=== PATIENT | male | born 1955 | race Caucasian/White ===

== ENCOUNTER 2017-09-25 10:54 | Inpatient (IN) | payer OTHER ==
--- NOTE | 2017-09-25 11:31 | EDPHY ---
H & P Time Seen by Provider: 09/25/17 11:28 HPI/ROS: CHIEF COMPLAINT: Fever and skin rash HISTORY OF PRESENT ILLNESS: Sent from primary care doctor Janey. Took tylenol at 900. Patient 1st developed fever and chills and a backache when he was in [place] visiting his parents on Wednesday night of this week. The next morning on Wednesday he awakened with a red rash in his left groin. He was seen at urgent care on in [place] and then presents to the primary care office today. He was referred here for concerns about infection. The redness is on both sides. It is uncomfortable. Associated with continued chills, but no blisters. Symptoms moderate to severe. REVIEW OF SYSTEMS: Eye: no change in vision ENT: no sore throat Cardiac: no chest pain or syncope Pulmonary: no cough or SOB Abdomen: no vomiting, diarrhea, abdominal pain Musculoskeletal: no back pain Skin: HPI Neuro: no headache Constitutional: HPI : no urinary symptoms A comprehensive 10 point review of systems is otherwise negative aside from elements mentioned in the history of present illness. PAST MEDICAL HISTORY: Includes coronary disease with stenting, pancreatitis, cholecystectomy, hypertension, hyperlipidemia. CML. Social history: nonsmoker General Appearance: Alert and conversant, cooperative. Eyes: No scleral icterus. ENT, Mouth: Normal mucous membranes. Respiratory: Normal respiratory effort, breath sounds equal, lungs are clear to auscultation. Cardiovascular: Regular rate and rhythm. Gastrointestinal: Abdomen is soft and non tender. Neurological: Alert, face symmetric, normal motor and sensory in extremities. Skin: Erythematous area on the right lateral lower abdomen just above his iliac crest. He has erythema and induration is suprapubic area as well as both sides of his groin. His scrotum is swollen and red and warm to the touch but not particularly tender. No blisters or eschar no crepitus anywhere. No fluctuance. Musculoskeletal: No peripheral edema. Psychiatric: Not agitated. Emergency Department course/MDM: I think it is most likely the patient has cellulitis. Also considered are abscess, fasciitis, fungal, contact dermatitis. Broad-spectrum antibiotics, consultation with Infectious Disease and [facility] and urology. Hospitalist admission. Patient says he had a penicillin allergy as a kid but has been taken cephalosporin since without trouble. 1220: [place] for [place], [place] for ID; he recommends vanco and meropenem. Constitutional: Initial Vital Signs Temperature (C) 37.3 C 09/25/17 11:03 Heart Rate 79 09/25/17 11:03 Respiratory Rate 18 09/25/17 11:03 Blood Pressure 148/85 H 09/25/17 11:03 O2 Sat (%) 98 09/25/17 11:03 O2 Delivery Mode Room Air Allergies/Adverse Reactions: Penicillins Allergy (Unknown, Verified 04/01/09 09:35) Unknown Home Medications: Medication Instructions Recorded Aspirin 81mg (*) 09/25/17 Levothyroxine 09/25/17 Losartan Potassium 09/25/17 SIMVASTATIN 09/25/17 Sertraline HCl 09/25/17 Medical Decision Making Differential Diagnosis: Differential considered including but not limited to contact dermatitis, cellulitis, fasciitis, abscess, [place] Consult/Admit Bed Type: [place] [id number], [place] [id number], [place] [id number] - Data Points Laboratory Results: Laboratory Results 09/25/17 11:37 09/25/17 11:37 09/25/17 09/25/17 09/25/17 11:37 11:37 11:37 WBC RBC Hgb Hct MCV MCH MCHC RDW Plt Count MPV Neut % (Auto) Lymph % (Auto) Mill[place] % (Auto) Eos % (Auto) Baso % (Auto) Nucleat RBC Rel Count Absolute Neuts (auto) Absolute Lymphs (auto) Absolute Monos (auto) Absolute Eos (auto) Absolute Basos (auto) Absolute Nucleated RBC Immature Gran % Immature Gran # Platelet Estimate PT 13.9 SEC SEC (12.0-15.0) INR 1.05 (0.83-1.16) APTT 32.0 SEC SEC (23.0-38.0) VBG Lactic Acid Sodium 134 mEq/L L mEq/L (135-145) Potassium 3.4 mEq/L mEq/L (3.3-5.0) Chloride 99 mEq/L mEq/L (97-110) Carbon Dioxide 25 mEq/l mEq/l (22-31) Anion Gap 10 mEq/L mEq/L (8-16) BUN 14 mg/dL mg/dL (7-23) Creatinine 0.8 mg/dL mg/dL (0.7-1.3) Estimated GFR > 60 Glucose 102 mg/dL H mg/dL (70-100) Calcium 8.4 mg/dL L mg/dL (8.5-10.4) Total Bilirubin Cancelled 1.5 mg/dL H mg/dL (0.1-1.4) C-Reactive Protein 160.7 mg/L H mg/L (<10.0) Specimen Hemolysis Cancelled 09/25/17 09/25/17 11:37 11:37 WBC 5.05 10^3/uL 10^3/uL (3.80-9.50) RBC 3.31 10^6/uL L 10^6/uL (4.40-6.38) Hgb 11.4 g/dL L g/dL (13.7-17.5) Hct 32.6 % L % (40.0-51.0) MCV 98.5 fL fL (81.5-99.8) MCH 34.4 pg H pg (27.9-34.1) MCHC 35.0 g/dL g/dL (32.4-36.7) RDW 14.6 % % (11.5-15.2) Plt Count 71 10^3/uL L 10^3/uL (150-400) MPV 10.2 fL fL (8.7-11.7) Neut % (Auto) 77.8 % H % (39.3-74.2) Lymph % (Auto) 8.9 % L % (15.0-45.0) Millard % (Auto) 12.7 % % (4.5-13.0) Eos % (Auto) 0.0 % L % (0.6-7.6) Baso % (Auto) 0.2 % L % (0.3-1.7) Nucleat RBC Rel Count 0.0 % % (0.0-0.2) Absolute Neuts (auto) 3.93 10^3/uL 10^3/uL (1.70-6.50) Absolute Lymphs (auto) 0.45 10^3/uL L 10^3/uL (1.00-3.00) Absolute Monos (auto) 0.64 10^3/uL 10^3/uL (0.30-0.80) Absolute Eos (auto) 0.00 10^3/uL L 10^3/uL (0.03-0.40) Absolute Basos (auto) 0.01 10^3/uL L 10^3/uL (0.02-0.10) Absolute Nucleated RBC 0.00 10^3/uL 10^3/uL (0-0.01) Immature Gran % 0.4 % % (0.0-1.1) Immature Gran # 0.02 10^3/uL 10^3/uL (0.00-0.10) Platelet Estimate Not Reported PT INR APTT VBG Lactic Acid 0.8 mmol/L mmol/L (0.7-2.1) Sodium Potassium Chloride Carbon Dioxide Anion Gap BUN Creatinine Estimated GFR Glucose Calcium Total Bilirubin C-Reactive Protein Specimen Hemolysis Medications Given: Potassium Chloride/Sodium Chloride (Ns W/ 20 Kcl/L) 1,000 mls @ 100 mls/hr IV CONT CARLOS ENRIQUE Stop: 03/24/18 12:59 Last Admin: 09/25/17 14:29 Dose: 1,000 mls Ondansetron HCl (Zofran Odt) 4 mg PO Q4HRS PRN PRN Reason: Nausea/Vomiting, Use 1st Stop: 03/24/18 12:50 Last Admin: 09/25/17 13:47 Dose: 4 mg Oxycodone HCl (Oxycodone Ir) 5 - 10 mg PO Q3HRS PRN PRN Reason: Pain, Severe Able to Take PO Stop: 10/05/17 12:50 Last Admin: 09/25/17 13:47 Dose: 5 mg Discontinued Medications Sodium Chloride (Ns) 1,000 mls @ 0 mls/hr IV EDNOW ONE; Wide Open PRN Reason: Protocol Stop: 09/25/17 11:56 Last Admin: 09/25/17 12:27 Dose: 1,000 mls Ertapenem 1 gm/ Sodium (Chloride) 100 mls @ 200 mls/hr IV EDNOW ONE PRN Reason: Protocol Stop: 09/25/17 12:51 Last Admin: 09/25/17 13:38 Dose: Not Given Vancomycin/Sodium Chloride (Vancomycin 1 Gm (Premix)) 250 mls @ 250 mls/hr IV EDNOW ONE PRN Reason: Protocol Stop: 09/25/17 13:21 Last Admin: 09/25/17 12:28 Dose: 250 mls Meropenem 1 gm/ Sodium (Chloride) 120 mls @ 120 mls/hr IV EDNOW ONE PRN Reason: Protocol Stop: 09/25/17 13:28 Last Admin: 09/25/17 14:29 Dose: 120 mls Departure - Departure Disposition: [facility] In[facility] Acute Clinical Impression: Cellulitis of groin Condition: Fair
[2017-09-25] MEDS ORDERED: NS 1,000 ML IV ONE (11:55)
[2017-09-25 12:15] LABS: INR 1.05 (0.83-1.16); PROTIME(PATIENT) 13.9 SEC (12.0-15.0)
[2017-09-25 12:20] LABS: PLATELET COUNT 71 10^3/uL (150-400)
[2017-09-25] MEDS ORDERED: ERTAPENEM 1 GM in NS 100 ML IV ONE (12:22)
[2017-09-25] MEDS ORDERED: VANCOMYCIN HCL/NORMAL SALINE 250 ML IV ONE (12:22)
[2017-09-25] MEDS ORDERED: MEROPENEM 1 GM in NS 100 ML IV ONE (12:29)
[2017-09-25] MEDS ORDERED: ONDANSETRON 4 MG/2 ML VIAL IVP PRN (12:51)
[2017-09-25] MEDS ORDERED: ACETAMINOPHEN 325 MG TAB PO PRN (12:51)
[2017-09-25] MEDS ORDERED: ONDANSETRON DISINTEGRATING 4 MG TAB PO PRN (12:51)
--- NOTE | 2017-09-25 12:53 | PDCONSULT ---
Early Childhood Note: Acute Care Surgical Services Consult Note: dictated #[id number] Patricia Hunter MD, FACS
--- NOTE | 2017-09-25 13:13 | GCON ---
[f rep st] CONSULTATION SURGICAL CONSULT DATE OF CONSULTATION: 09/25/2017 REFERRING PHYSICIAN: Yrn Thomson MD CHIEF COMPLAINT: Lower abdominal cellulitis. HISTORY OF PRESENT ILLNESS: Patient is a 62-year-old male, who was traveling in [place] and 4 days ago noticed some erythema in his left groin. The following day it had spread to the opposite side, and he became concerned and was seen at an urgent care and told that he had some form of skin infection. He presented to the emergency room here this morning with worsening cellulitis, and surgical consult ation was requested to rule out necrotizing fasciitis. PAST MEDICAL HISTORY: Significant for CML. He had a prior right inguinal hernia repair within the l ast [address] Quiroz. CHRONIC MEDICATIONS: Include aspirin, levothyroxine, losartan, sertraline, and simvastatin. ALLERGIES: He has a reported allergy to penicillin, though he was a child when this occurred and has not received penicillin since then. SOCIAL HISTORY: Patient is , accompanied by his . REVIEW OF SYSTEMS: Patient denies any chest pain, shortness of breath, headaches, visual disturbance s. He has had no recent dental work or painful teeth. He has no back pain. Has had no dysuria, dwayne rrhea, melena, hematochezia. There is no history of trauma. FAMILY HISTORY: Noncontributory. PHYSICAL EXAMINATION: VITAL SIGNS: Patient's blood pressure 148/85, heart rate is 79, respiratory r ate is 18, O2 sat is 98% on room air, temperature is 37.3. GENERAL: Patient is a pleasant, heavyset gentleman who is in no acute distress. He reports being hungry and had a light breakfast this morni ng. ABDOMEN: His focused abdominal exam reveals erythema extending to the lower abdominal wall bila terally and into both groins and anterior thighs. GENITALIA: The entire scrotum and penis are eryth ematous and edematous, but the erythema ends at the base of the scrotum and does not extend beyond th e perineal [place]he. Perianal exam appears unremarkable. EXTREMITIES: Pedal pulses are +2 and symmetr ical. Patient has trace pitting edema. There is no palpable adenopathy, fluctuance. There is a wel l-healed right lower inguinal incision. LABORATORY STUDIES: WBC is 5.0, hemoglobin 11.4, hematocrit 32.6, platelets 71,000. Venous lactate 0.8. Sodium 134, potassium 3.4, chloride 99, bicarb 25, BUN 14, creatinine 0.8, calcium 8.4, bilirub in 1.5. C-reactive protein is 160. IMPRESSION: 1. Bilateral lower abdominal, inguinal and scrotal cellulitis. No clinical evidence of necrotizing fasciitis. Patient does not appear septic at this time. 2. History of chronic myeloid leukemia with mild anemia and thrombocytopenia. 3. Hypertension. 4. Previous right inguinal hernia repair with mesh. RECOMMENDATIONS: Patient has been started on appropriate antibiotics. Would recommend ID, Oncology and Medical consultations. If patient shows evidence of sepsis or progression despite antibiotics, w ould consider imaging with MRI and/or CT. /[id number]/MODL
[2017-09-25] MEDS: oxyCODONE IR 5 MG TAB PO PRN ×2 (13:47→18:29)
[2017-09-25] MEDS: NS W/ 20 KCl/L 1,000 ML IV SCH (14:29)
--- NOTE | 2017-09-25 16:48 | PDGENHP ---
History and Physical - Chief Complaint Acute myalgias - History of Present Illness Primary care provider: Dr. Bobo Primary oncologist: Dr. Payam Loera HPI: 62-year-old male presenting with acute myalgias characterized as diffuse muscle aches with associated subjective fever, rash, chills, dizziness. Patient reports that the onset of symptoms were 4 days ago while he was visiting and assisting his 90-year-old parents in [place]. He reports that he experienced extreme fatigue, and slept for approximately 16 hr, which is atypical for him. Upon mobilizing, the patient noted that he had ongoing fatigue, myalgias, dizziness exacerbated with standing and intermittent subjective fevers and chills. At that time, he did not note any particular infectious location. He went to an urgent care in [place], and evaluation revealed a rash located in his inguinal area, which they diagnosed as "jock itch " and recommended topical steroid. The steroid ointment did not alleviate the rash, and the area became increasingly red, firm, warm, tender. Extended from his suprapubic area into his inguinal area and then inferiorly, resulting in bogginess in his scrotum. He did not note any penile discharge or abnormal drainage. He denies any urinary symptoms. He reports that upon arriving back in [place], he has been sleeping with a pillow between his legs to alleviate some of his scrotal discomfort. On the day of presentation, he reports that he is cognitively foggy, and he sought medical attention at his primary care provider office, who referred him to our emergency department. History Information - Allergies/Home Medication List Allergies/Adverse Reactions: Penicillins Allergy (Unknown, Verified 04/01/09 09:35) Unknown Home Medications: Aspirin EC [Aspirin EC 81 mg (*)] 81 mg PO DAILY 09/25/17 [Last Taken 09/25/17 14:00] Dasatinib [Sprycel] 100 mg PO DAILY 09/25/17 [Last Taken 09/25/17 14:00] Levothyroxine [Synthroid 150 mcg (*)] 150 mcg PO DAILY06 09/25/17 [Last Taken 14:00] Losartan Potassium [Cozaar] 25 mg PO DAILY 09/25/17 [Last Taken 09/25/17 14:00] Sertraline HCl [Zoloft 50mg (*)] 50 mg PO DAILY 09/25/17 [Last Taken 09/25/17 14 :00] Simvastatin 20 mg PO HS 09/25/17 [Last Taken 09/24/17] I have personally reviewed and updated: family history, medical history, social history, surgical history - Past Medical History coronary artery disease (With stent in the LAD) Additional medical history: CML currently on desatinib for the past 2-3 years. Hypothyroidism. Hypertension. Hyperlipidemia - Surgical History Additional surgical history: Right inguinal hernia repair, cardiac catheterization in March of 2009, cholecystectomy, no previous urologic surgeries - Family History Additional family history: No family history of nephrolithiasis or prostate cancer - Social History Smoking Status: Never smoked Alcohol Use: Other (Patient regularly drinks half a bottle of wine per night, he reports that he may have experienced mild alcohol withdrawal in the past) Drug Use: None Additional social history: Independent in his ADLs, lives with locally Review of Systems Review of Systems: ROS: 10pt was reviewed & negative except for what was stated in HPI & below Constitutional: Reports: chills, fever, malaise, weakness Genitourinary: Reports: other (Scrotal pain) Muscolosketal: Reports: muscle pain Skin: Reports: rash (Inguinal area) Physical Exam Physical Exam: Temp Pulse Resp BP Pulse Ox 37.9 C 79 12 114/66 90 L 09/25/17 16:16 09/25/17 16:16 09/25/17 16:16 09/25/17 16:16 09/25/17 16:16 Constitutional: no apparent distress, obese, uncomfortable, No not in pain ( Mild in inguinal area) Eyes: PERRL, anicteric sclera, EOMI Ears, Nose, Mouth, Throat: moist mucous membranes, hearing normal, ears appear normal, no oral mucosal ulcers Cardiovascular: regular rate and rhythym, no murmur, rub, or gallop, No edema Respiratory: no respiratory distress, no rales or rhonchi, clear to auscultation Gastrointestinal: normoactive bowel sounds, soft, non-tender abdomen, no palpable masses Genitourinary: other (Scrotal bogginess and fullness with mild tenderness, no penile lesions, no penile drainage, no tenderness over the penis) Skin: rash (Bilateral inguinal area with some ecchymoses, raised red lesions but no induration inferior to the suprapubic area, that said, the suprapubic area is notably Yessenia rated and mildly tender) Neurologic: AAOx3, sensation intact bilaterally, No weakness Psychiatric: interacting appropriately, not anxious, not encephalopathic, thought process linear Lab Data & Imaging Review 09/25/17 11:37 09/25/17 11:37 WBC 5.05 10^3/uL (3.80-9.50) 09/25/17 11:37 RBC 3.31 10^6/uL (4.40-6.38) L 09/25/17 11:37 Hgb 11.4 g/dL (13.7-17.5) L 09/25/17 11:37 Hct 32.6 % (40.0-51.0) L 09/25/17 11:37 MCV 98.5 fL (81.5-99.8) 09/25/17 11:37 MCH 34.4 pg (27.9-34.1) H 09/25/17 11:37 MCHC 35.0 g/dL (32.4-36.7) 09/25/17 11:37 RDW 14.6 % (11.5-15.2) 09/25/17 11:37 Plt Count 71 10^3/uL (150-400) L 09/25/17 11:37 MPV 10.2 fL (8.7-11.7) 09/25/17 11:37 Neut % (Auto) 77.8 % (39.3-74.2) H 09/25/17 11:37 Lymph % (Auto) 8.9 % (15.0-45.0) L 09/25/17 11:37 [place] % (Auto) 12.7 % (4.5-13.0) 09/25/17 11:37 Eos % (Auto) 0.0 % (0.6-7.6) L 09/25/17 11:37 Baso % (Auto) 0.2 % (0.3-1.7) L 09/25/17 11:37 Nucleat RBC Rel Count 0.0 % (0.0-0.2) 09/25/17 11:37 Absolute Neuts (auto) 3.93 10^3/uL (1.70-6.50) 09/25/17 11:37 Absolute Lymphs (auto) 0.45 10^3/uL (1.00-3.00) L 09/25/17 11:37 Absolute Monos (auto) 0.64 10^3/uL (0.30-0.80) 09/25/17 11:37 Absolute Eos (auto) 0.00 10^3/uL (0.03-0.40) L 09/25/17 11:37 Absolute Basos (auto) 0.01 10^3/uL (0.02-0.10) L 09/25/17 11:37 Absolute Nucleated RBC 0.00 10^3/uL (0-0.01) 09/25/17 11:37 Immature Gran % 0.4 % (0.0-1.1) 09/25/17 11:37 Immature Gran # 0.02 10^3/uL (0.00-0.10) 09/25/17 11:37 Platelet Estimate Not Reported 09/25/17 11:37 PT 13.9 SEC (12.0-15.0) 09/25/17 11:37 INR 1.05 (0.83-1.16) 09/25/17 11:37 APTT 32.0 SEC (23.0-38.0) 09/25/17 11:37 VBG Lactic Acid 0.8 mmol/L (0.7-2.1) 09/25/17 11:37 Sodium 134 mEq/L (135-145) L 09/25/17 11:37 Potassium 3.4 mEq/L (3.3-5.0) 09/25/17 11:37 Chloride 99 mEq/L (97-110) 09/25/17 11:37 Carbon Dioxide 25 mEq/l (22-31) 09/25/17 11:37 Anion Gap 10 mEq/L (8-16) 09/25/17 11:37 BUN 14 mg/dL (7-23) 09/25/17 11:37 Creatinine 0.8 mg/dL (0.7-1.3) 09/25/17 11:37 Estimated GFR > 60 09/25/17 11:37 Glucose 102 mg/dL (70-100) H 09/25/17 11:37 Calcium 8.4 mg/dL (8.5-10.4) L 09/25/17 11:37 Total Bilirubin 1.5 mg/dL (0.1-1.4) H 09/25/17 11:37 Lactate Dehydrogenase 551 IU/L (313-618) 09/25/17 14:19 C-Reactive Protein 160.7 mg/L (<10.0) H 09/25/17 11:37 Specimen Hemolysis Cancelled 09/25/17 11:37 Urine Color YELLOW 09/25/17 14:55 Urine Appearance CLEAR 09/25/17 14:55 Urine pH 6.0 (5.0-7.5) 09/25/17 14:55 Ur Specific [place] 1.003 (1.002-1.030) 09/25/17 14:55 Urine Protein NEGATIVE (NEGATIVE) 09/25/17 14:55 Urine Ketones TRACE (NEGATIVE) H 09/25/17 14:55 Urine Blood 1+ (NEGATIVE) H 09/25/17 14:55 Urine Nitrate NEGATIVE (NEGATIVE) 09/25/17 14:55 Urine Bilirubin NEGATIVE (NEGATIVE) 09/25/17 14:55 Urine Urobilinogen 2.0 EU (0.2-1.0) H 09/25/17 14:55 Ur Leukocyte Esterase NEGATIVE (NEGATIVE) 09/25/17 14:55 Urine RBC NONE SEEN /hpf (0-3) 09/25/17 14:55 Urine WBC 0-1 /hpf (0-3) 09/25/17 14:55 Ur Epithelial Cells NONE SEEN /lpf (NONE-1+) 09/25/17 14:55 Urine Glucose NEGATIVE (NEGATIVE) 09/25/17 14:55 Assessment & Plan Assessment: 62-year-old male presents with acute lower abdominal wall cellulitis Plan: 1. Cellulitis. Present on admission. Acute, new problem this provider, further workup indicated. Located in the suprapubic area with gravity dependent ecchymoses in the bilateral inguinal area as well as scrotal bogginess most likely secondary to gravity dependent soft tissue swelling from his superior cellulitis -discussed with Dr. Fredo Troncoso, he suggests that the patient most likely experienced some waistline friction and resultant breakage in the skin barrier, should be treated for skin kelli -appreciate surgical consultation -day 1 of IV vancomycin -patient may have impaired immune system activity with underlying CML and will most likely require at least 48 hr of IV antibiotics to accomplish stabilization -blood cultures drawn given his systemic symptoms, monitor for bacteremia -CRP significantly elevated at 160, lactic normal 2. Chronic myelogenous leukemia. Currently stabilized on desatinib, patient may have and blunted immune response explaining why his white blood cell count is abnormally normal despite the severity of his cellulitis 3. Coronary artery disease. Chronic, reviewed outside records including [address] Nikko Riley characterizing patient's mid LAD lesion requiring stent placement for unstable angina, preserved ejection fraction 60% at that time -continue patient's home cardiac medications once reconciled 4. Hypertension. Chronic, continue home medication once reconciled Diet. Regular comma IV fluids overnight Prophylaxis. Moderate risk patient, Lovenox 40 Code. Full per patient, is MD POA Disposition. Anticipated discharge uncertain this time, anticipated length stay is greater than 48 hr for reasonable medical necessity including severe acute abdominal wall cellulitis requiring at least 48 hr of IV antibiotic therapy with drug level monitoring, blood culture monitoring, frequent reassessment of clinical symptoms, high risk patient with underlying chronic myelogenous leukemia.
--- NOTE | 2017-09-25 19:19 | PDMN ---
Medical Necessity Medical necessity: Pt meets inpt criteria per MD order and MCG M-70, Cellulitis , A-2 days. Pt presents with extreme fatigue, myalgias, dizziness, diagnosed w / severe acute abd wall cellulitis, IV ABX initiated, blood cultures pending, IVF, comorbid condition of CML (chronic myelongenous leukemia)- may have impaired immune response from this, CAD and HTN, ID and Surg consults pending. Anticipate >2mn for ongoing eval and treatment.
[2017-09-25] MEDS: ATORVASTATIN CALCIUM 10 MG TAB PO SCH (20:45)
--- NOTE | 2017-09-25 20:46 | GCON ---
[f rep st] CONSULTATION DATE OF CONSULTATION: 09/25/2017 CHIEF COMPLAINT: Lower abdominal and scrotal cellulitis with possible new area of erythema in the ri ght flank. Patient does state that the erythema and symptoms of cellulitis are improving despite thi s new left flank area. HISTORY OF PRESENT ILLNESS: 62-year-old male, traveling in [place] 4 days ago, noticed erythema approx imately 12 hours after a bout of fevers and chills. It should be noted that the fevers and chills st arted prior to any notification or symptoms of cellulitis or groin swelling or discomfort. He went t o bed early on Wednesday with fevers and chills. morning he awoke noting the symptoms of ce llulitis with erythema, edema, tenderness to the touch around his lower abdomen and groin. It had sp read on Wednesday and he went to a physician at an urgent care. They told him it might be jock itch. Bev meier came to the emergency room this morning with worsening cellulitis and fevers. PAST MEDICAL HISTORY: Significant for CML; he is on immunotherapy for that. He had a prior right in guinal hernia repair by Dr. Quiroz. CHRONIC MEDICATIONS: Aspirin, levothyroxine, losartan, sertraline, and simvastatin. ALLERGIES: Penicillin. SOCIAL HISTORY: He is . REVIEW OF SYSTEMS: Negative except for abdominal discomfort, groin discomfort. A 10-point review of systems is otherwise negative. FAMILY HISTORY: Noncontributory. PHYSICAL EXAMINATION: VITAL SIGNS: His blood pressures are normal 130s over 80s. Heart rate is 70, respiratory rate is 12, oxygen saturation 98% on room air, afebrile. GENERAL: Resting comfortably. No acute distress. HEENT: Normocephalic, atraumatic. NECK: Supple. No lymphadenopathy. Trache a is midline. CHEST: No retractions or pursed lip breathing. No cyanosis. ABDOMEN: GENITALIA: So ft, nontender, nondistended. The lower abdomen, groin area and scrotum are all erythematous, edem[place] us, and mildly tender to palpation. There is an area of erythema and edema on the right flank the pa tient states is new that is mildly tender to palpation. Perianal exam is unremarkable. EXTREMITIES: Pulses are +2, symmetrical, mild edema bilaterally in the lower extremities. No palpable lymphaden opathy or fluctuance. LAB STUDIES: White count is 5. H and H are normal. Platelet count is 71,000. Lactate is normal. Creatinine is 0.8. ASSESSMENT AND PLAN: 1. Abdominal, inguinal, and scrotal cellulitis, improving on antibiotics-watch this carefully. Will follow along. I strongly recommend Oncology evaluate this patient to see if this is related to his immunotherapy, which can cause rashes in some patients, although since the antibiotics seem to be imp roving this, this may not necessarily be completely related to the immunotherapy. Oncology has been consulted. 2. Continue antibiotics. 3. Will follow. 4. If rash/cellulitis worsens, recommend abdominal CT of the abdomen and pelvis to evaluate for [place] gangrene or necrotizing fasciitis. /[id number]/MODL
[2017-09-25] MEDS ORDERED: CHOLESTYRAMINE/SUCROSE 4 GM PKT PO SCH (21:00)
--- NOTE | 2017-09-25 23:06 | GCON ---
[f rep st] CONSULTATION INPATIENT INFECTIOUS DISEASE CONSULTATION REFERRING PHYSICIAN: Yrn Leslie MD REASON FOR REFERRAL: Suprapubic cellulitis with extension to the right flank. HISTORY OF PRESENT ILLNESS: Patient is a 62-year-old male who has underlying chronic myelogenous kyle kemia on targeted chemotherapy, who was flying to [place] last week and became ill while visiting his parents there. The patient noted initially an inflamed area in the left groin which after the first night there ended up extending over into his right groin. He sought advice from an urgent care clin ic, who gave him steroid cream and told him that he had jock itch. The patient used the cream, but t he inflammation and swelling became worse. He had some subjective fevers and chills as well. He pre sented to the emergency room earlier today with complaints of extending erythema up to the right flan k. He was evaluated and found to have a normal total white blood cell count with a mild shift, neutr ophil sub group. The patient was started empirically on vancomycin and meropenem. He was admitted f or evaluation. We are consulted to determine antibiotic regimen as well as severity and involvement. PAST MEDICAL HISTORY: 1. 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 2. Coronary artery disease. 3. Hypothyroidism. 4. Hypertension. 5. Hyperlipidemia. PAST SURGICAL HISTORY: 1. Status post right inguinal hernia repair many years ago. 2. Status post cardiac catheterization in March of 2009. 3. Status post cholecystectomy. ANTIBIOTICS: 1. Vancomycin. 2. Meropenem. ALLERGIES: Patient has a childhood allergy to penicillin. He does not know his reaction. SOCIAL HISTORY: Patient is . Never a tobacco user. Has multiple glasses of wine per night. No drug use. FAMILY HISTORY: Reviewed but noncontributory. REVIEW OF SYSTEMS: Other than that detailed above in history of present illness, a comprehensive 10- system review is negative. PHYSICAL EXAMINATION: VITAL SIGNS: Temperature maximum 37.3, temperature current 36.9, heart rate 7 6, respiratory rate 14, blood pressure 140/79. GENERAL: The patient is a well-formed, well-nourishe d older male in no acute distress. He is not toxic in appearance. He is alert and oriented x3. He has a pleasant demeanor. HEENT: Normocephalic for age. Atraumatic. No scleral icterus. No oral l esion or drainage from the nares. Eyes, lids, conjunctivae are within normal limits. Pupils are equal and round bilaterally. NECK: S upple. No meningismus. LUNGS: Clear to auscultation bilaterally. Good effort. HEART: Regular ra te and rhythm. No murmur, rub, or gallop noted. ABDOMEN: Soft nontender in the upper quadrants. S uprapubically there is notable edema and dusky, patchy erythema that stretches down to bilateral ingu inal areas. There are no discrete masses or fluctuance, although he is tender in the suprapubic and lower quadrants. There is erythema that stretches up onto the right flank. SKIN: Warm and dry to t he touch. Rash as described above. No other lesions noted. MUSCULOSKELETAL: No other muscle tender ness is noted. No effusion or arthritis is seen. NEURO: Cranial nerves 2-12 seem to be intact. Peripheral sensation seems intact in extremities. LABORATORY DATA: Patient has a CBC dated 09/25/2017 shows a white blood cell count of 5.1, hemoglobi n 11.4, hematocrit of 32.6, and platelet count of 71. Differential shows mild left shift with 78% se gmented neutrophils. Serum chemistries on 09/25 show sodium 134, potassium of 3.4, chloride of 99, b icarbonate 25, BUN of 14, creatinine of 0.8, total bilirubin is elevated at 1.5. C-reactive protein is elevated 160.7. MICROBIOLOGIC DATA: Patient has blood cultures dated 09/25/2017, which are pending. ASSESSMENT: Suprapubic cellulitis with extension in the inguinal areas and up onto the right flank. The patient does have scrotal edema, but I think this is probably dependent and not primary or invol wagner. The patient was started empirically on vancomycin and meropenem. We will continue the meropene m 1 g IV q.8 hours. We will evaluate over time his response to treatment. PLAN: 1. Continue both vancomycin and meropenem. 2. Follow clinical course. /[id number]/MODL
[2017-09-26] MEDS: oxyCODONE IR 5 MG TAB PO PRN ×2 (00:13→12:56)
[2017-09-26] MEDS: VANCOMYCIN 1.5 GM in D5W 250 ML IV SCH ×2 (00:14→11:17)
[2017-09-26] MEDS: NS W/ 20 KCl/L 1,000 ML IV SCH (00:24)
[2017-09-26 04:45] LABS: PLATELET COUNT 59 10^3/uL (150-400)
[2017-09-26] MEDS ORDERED: MEROPENEM 1 GM in NS 100 ML IV SCH (06:00)
[2017-09-26] MEDS: LEVOTHYROXINE 150 MCG TAB PO SCH (06:07)
[2017-09-26] MEDS ORDERED: Dasatinib [Sprycel] 100 MG PO SCH (09:00)
[2017-09-26] MEDS: ASPIRIN EC 81 MG TAB PO SCH (09:01)
[2017-09-26] MEDS: SERTRALINE HCL 50 MG TAB PO SCH (09:01)
[2017-09-26] MEDS: ENOXAPARIN 40 MG/0.4 ML SYR SC SCH (09:01)
--- NOTE | 2017-09-26 09:13 | GCON ---
[f rep st] CONSULTATION INPATIENT HEMATOLOGY CONSULTATION. DATE OF CONSULTATION: 09/26/2017 REFERRING PHYSICIAN: aPyam Burton MD OUTPATIENT ONCOLOGIST: Payam Loera MD REASON FOR CONSULTATION: Perineal cellulitis in a patient with a history of chronic myeloid leukemia . HISTORY OF PRESENT ILLNESS: The patient is a 62-year-old man with a history of chronic myeloid leuke ag. He was diagnosed in August of 2015. He presented with leukocytosis and splenomegaly. Bone marro w biopsy showed chronic myeloid leukemia. His Sokel score was high. He was started on dasatinib at 100 mg per day. At 1 year, his bone marrow showed a cytogenetic remission, though his PCR remained m ildly elevated at 0.5%. That has been falling slowly, and as of last week, the PCR was 0.3%, just sh ort of a major molecular response. He does not have a T315I mutation. His platelet count has been c hronically low on dasatinib around 100 and his white count also slightly low around 2.5 to 3. The patient was traveling and developed a fever and low back pain. The next day, he noticed a rash i n his groin. He continued to feel poorly and so came back from [place] where he was traveling and to the emergency department. He was evaluated by Surgery, Urology, and Infectious Disease. They belie ve he has a cellulitis, though there is no evidence of necrotizing fasciitis. He is currently on kristan openem and vancomycin. His rash is improving. He is feeling better without a fever since admission. His platelet count fell slightly to 59. His white count is 4.28 with an absolute neutrophil count of 2900. PAST MEDICAL HISTORY: 1. Chronic myeloid leukemia as described above. 2. Coronary artery disease, status post stent 20 years ago. CURRENT MEDICATIONS: Include meropenem, Lovenox, vancomycin, sertraline, Lipitor. ALLERGIES: No known drug allergies. FAMILY HISTORY: Noncontributory. SOCIAL HISTORY: Nonsmoker. He drinks wine moderately. He is a retired oil and gas developer. REVIEW OF SYSTEMS: Aside from pertinent positives in the HPI, 14-point review of systems. PHYSICAL EXAMINATION: VITAL SIGNS: Temperature 37.0, blood pressure 110/65, heart rate 69, oxygen s aturation 97% on 1 L. GENERAL: He was in no acute distress. HEENT: Sclerae anicteric. Oropharynx is clear. NECK: Supple without lymphadenopathy. LUNGS: Clear to auscultation bilaterally. CARDI AC: Regular rate and rhythm. No murmurs, gallops, or rubs. ABDOMEN: Normoactive bowel sounds. No ntender, nondistended. : His rash is mostly resolved. There is still some scrotal edema. There is no skin breakdown. EXTREMITIES: No edema. NEUROLOGIC: Alert and oriented x3. LABORATORY DATA: Reviewed in the HPI. IMPRESSION: This is a 62-year-old man presenting with perineal cellulitis. He is on dasatinib for c hronic myelogenous leukemia. He is not neutropenic at baseline and is not neutropenic now. This judson atment is not particularly immunosuppressive. It is unclear if it is directly related to his current infection. RECOMMENDATIONS: 1. We will hold dasatinib until the infection has resolved and his blood counts recover. His diseas e is under good control and so this interruption should not be too much of a problem. 2. Continue antibiotic therapy as you are. 3. The patient should come to see Dr. Loera on discharge 2 to 3 weeks later to check his blood cou nts for discussion of resuming the dasatinib. Thank you for this consultation. We will continue to follow patient with you closely while he is in the hospital. /[id number]/MODL
[2017-09-26] MEDS ORDERED: MAG HYDROX/AL HYDROX/SIMETH 30 ML UDCUP PO PRN (11:27)
--- NOTE | 2017-09-26 11:44 | SOAPPROG ---
SOAP Progress Note Assessment/Plan: Assessment: Cellulitis, improving, lower abdomen and groin Plan: Cont Abx - appreciate Onc input on stopping immunotherapy until this resolves 09/26/17 11:42 Subjective: Doing well - home when hosp service deems appropriate - Objective: Vital Signs Temp Pulse Resp BP Pulse Ox 37.0 C 69 14 110/65 97 09/26/17 08:10 09/26/17 08:10 09/26/17 08:10 09/26/17 08:10 09/26/17 08:10 Laboratory Results 09/26/17 04:10 09/26/17 04:10 09/25/17 09/26/17 09/27/17 05:59 05:59 05:59 Intake Total 2974 Output Total 1450 250 Balance 1524 -250 PT 13.9 SEC (12.0-15.0) 09/25/17 11:37 INR 1.05 (0.83-1.16) 09/25/17 11:37 - Time Spent With Patient Time Spent With Patient: 15 min Physical Exam - Physical Exam EENT: PERRL/EOMI Neck: non-tender Respiratory: chest non-tender Cardiac/Chest: normal peripheral pulses Abdomen: other (erythema/cellulitis is improving, all marked areas w less erythema and edema) ICD10 Worksheet Patient Problems: Problems Problem Status Onset Cellulitis of groin Acute
--- NOTE | 2017-09-26 12:51 | PCMIDPN ---
Assessment/Plan: 1. Abdominal wall/inguinal/scrotal cellulitis in patient with underlying CML: Cellulitis has sharply demarcated margins and looks very consistent with streptococcal etiology. Gram negatives/anaerobes/MRSA seem less likely. Patient is not neutropenic. Will change vancomycin and meropenem to cefazolin 2 g IV q.8 hours and watch him closely. Do not feel that he needs imaging or addition of clindamycin or linezolid to diminish toxin production at this time given clinical stability. Subjective: Patient tells me"I feel much better today."Describes antecedent flu-like symptoms, then development of a bright red patch of erythema over his left groin that spread his abdomen, then to his scrotal area. Denies any bug bites, but feels that perhaps his underwear may have irritated the area. No dysuria. Objective: Vancomycin 1.5 g IV q.12 hours day 1. Meropenem 1 g IV Q 8 hr day 1. T-max 37.9 degrees Vital Signs Temp Pulse Resp BP Pulse Ox 37.2 C 70 19 110/65 90 L 09/26/17 12:08 09/26/17 12:08 09/26/17 12:08 09/26/17 12:08 09/26/17 12:08 Laboratory Results 09/26/17 04:10 09/26/17 04:10 09/25/17 09/26/17 09/27/17 05:59 05:59 05:59 Intake Total 2974 400 Output Total 1450 550 Balance 1524 -150 C-Reactive Protein 160.7 mg/L (<10.0) H 09/25/17 11:37 Blood cultures x2 yesterday no growth - Physical Exam General Appearance: alert, no apparent distress, other (Flushed cheeks) EENT: No scleral icterus, No thrush Respiratory: lungs clear Cardiac/Chest: regular rate, rhythm Abdomen: non-tender, soft Skin: other (Patient has sharply demarcated areas of brick red erythema on his abdomen that are not contiguous. He also has brick red erythema with some around his groin bilaterally, with some purpuric lesions. Scrotum is swollen, but nontender. It is also warm with dusky erythema. There are no bullae. No loss of sensation. The erythema has been marked with a pen. Parts of his abdomen look like they have extended slightly, but overall the redness has improved per the patient.) Neuro/Psych: oriented x 3 ICD10 Worksheet Patient Problems: Problems Problem Status Onset Cellulitis of groin Acute
[2017-09-26] MEDS ORDERED: ceFAZolin 2 GM/DEXTROSE 100 ML IV SCH (13:00)
--- NOTE | 2017-09-26 13:33 | ASMTCMCOM ---
CM Note CM Note Notes: 09/26/2017 Case Management Note Pt admitted for treatment of cellulitis of the groin. Pt is currently on IV antibiotics. Case Management to follow for possible IV antibiotic d/c needs. There are no PT or OT evals ordered at this time. Case Management d/c poc: to be determined. Case Management to follow. Date Signed: 09/26/2017 01:32 PM Electronically Signed By:Virgie Palmer RN
--- NOTE | 2017-09-26 14:08 | HOSPPROG ---
Hospitalist Progress Note Assessment/Plan: Assessment: 62-year-old male presents with acute lower abdominal wall cellulitis Plan: 1. Cellulitis. Present on admission. Acute, improving w/ broad-spectrum Abx, suspect 2/2 abd wall friction at waistline -discussed with Dr. Fraga, she recommends adjustment for likely strep organisms and used IV Ancef for appropriate coverage, monitor additional 24hrs on IV Abx, and reassess for improvement in AM -day 2 Abx, on Ancef 2. Chronic myelogenous leukemia. Currently stabilized on desatinib, d/w Dr. Rabago, he recommends holding Rx until episode above resolved, then restart as outpt, disease process currently well controlled 3. Coronary artery disease. Chronic, LAD stent -continue patient's home cardiac medications once reconciled 4. Hypertension. Chronic, continue home medication once reconciled Diet. Regular Prophylaxis. Moderate risk patient, Lovenox 40 Code. Full per patient, is MD CABRAL Disposition. Anticipated discharge uncertain this time, anticipated length stay is greater than 48 hr for reasonable medical necessity including severe acute abdominal wall cellulitis requiring at least 48 hr of IV antibiotic therapy Subjective: feels like he has more energy, no diarrhea Objective: Vital Signs Temp Pulse Resp BP Pulse Ox 37.3 C 70 19 110/65 96 09/26/17 12:49 09/26/17 12:08 09/26/17 12:08 09/26/17 12:08 09/26/17 12:49 Laboratory Results 09/26/17 04:10 09/26/17 04:10 09/25/17 09/26/17 09/27/17 05:59 05:59 05:59 Intake Total 2974 400 Output Total 1450 550 Balance 1524 -150 PT 13.9 SEC (12.0-15.0) 09/25/17 11:37 INR 1.05 (0.83-1.16) 09/25/17 11:37 - Physical Exam Constitutional: no apparent distress, appears nourished, not in pain, obese Cardiovascular: regular rate and rhythym, no murmur, rub, or gallop, No edema Respiratory: no respiratory distress, no rales or rhonchi, clear to auscultation Gastrointestinal: normoactive bowel sounds, soft, non-tender abdomen, no palpable masses, No guarding, No distension Skin: rash (bilat groin ecchymoses, raised R groin w/ minimal blanchability; suprapubic induration and mild blanchability) Neurologic: AAOx3, sensation intact bilaterally, No facial droop Psychiatric: interacting appropriately, not anxious, not encephalopathic, thought process linear ICD10 Worksheet Patient Problems: Problems Problem Status Onset Cellulitis of groin Acute
[2017-09-26] MEDS: ceFAZolin 2 GM/DEXTROSE 100 ML IV SCH ×2 (14:32→21:34)
[2017-09-26] MEDS: ATORVASTATIN CALCIUM 10 MG TAB PO SCH (21:34)
[2017-09-27] MEDS: LEVOTHYROXINE 150 MCG TAB PO SCH (05:55)
[2017-09-27] MEDS: ceFAZolin 2 GM/DEXTROSE 100 ML IV SCH ×3 (05:56→21:51)
--- NOTE | 2017-09-27 08:24 | SOAPPROG ---
SOAP Progress Note Assessment/Plan: Assessment: - CML diagnosed in 2016 with leukocytosis and splenomegaly. He is currently well controlled on dasatinib which is currently on hold due to infection. - Scrotal cellulitis - no necrosis. Erythema retreating from ink lines. Afebrile. Not neutropenic. ID input appreciated. Duration and route of administration of antibiotics per ID. - CAD Plan: - Check CBC - Continue to hold dasatinib for now - Antibiotics per ID Subjective: Feels better. Thinks he has gotten more URIs in general since starting on dasatinib. Objective: Vital Signs Temp Pulse Resp BP Pulse Ox 36.9 C 92 18 150/84 H 92 09/27/17 08:14 09/27/17 08:14 09/27/17 08:14 09/27/17 08:14 09/27/17 08:14 Laboratory Results 09/26/17 04:10 09/26/17 04:10 09/25/17 09/26/17 09/27/17 23:59 23:59 23:59 Intake Total 1332 3360 Output Total 950 1250 Balance 382 2110 PT 13.9 SEC (12.0-15.0) 09/25/17 11:37 INR 1.05 (0.83-1.16) 09/25/17 11:37 Physical Exam - Physical Exam General Appearance: alert, no apparent distress Respiratory: lungs clear Cardiac/Chest: regular rate, rhythm Abdomen: splenomegaly (8cm below the LCM) Male Genitalia: erythema (scrotum. Scrotum also swollen.) Skin: other (erythema in groin appears to be retreating. No evidence of necrosis.) Neuro/Psych: alert, normal mood/affect, oriented x 3 ICD10 Worksheet Patient Problems: Problems Problem Status Onset Cellulitis of groin Acute
[2017-09-27 09:20] LABS: PLATELET COUNT 89 10^3/uL (150-400)
[2017-09-27] MEDS: ASPIRIN EC 81 MG TAB PO SCH (09:25)
[2017-09-27] MEDS: SERTRALINE HCL 50 MG TAB PO SCH (09:26)
[2017-09-27] MEDS: ENOXAPARIN 40 MG/0.4 ML SYR SC SCH (09:33)
--- NOTE | 2017-09-27 09:43 | SOAPPROG ---
SOAP Progress Note Assessment/Plan: Assessment: Cellulitis of groin Acute is improving and continue ID and Onc care, see me in office if concerns arise. Plan: follow up as needed 09/27/17 09:41 Subjective: doing well Objective: Vital Signs Temp Pulse Resp BP Pulse Ox 36.9 C 92 18 150/84 H 92 09/27/17 08:14 09/27/17 08:14 09/27/17 08:14 09/27/17 08:14 09/27/17 08:14 Laboratory Results 09/27/17 09:10 09/26/17 04:10 09/26/17 09/27/17 09/28/17 05:59 05:59 05:59 Intake Total 2974 1718 500 Output Total 1450 750 Balance 1524 968 500 PT 13.9 SEC (12.0-15.0) 09/25/17 11:37 INR 1.05 (0.83-1.16) 09/25/17 11:37 Physical Exam - Physical Exam General Appearance: alert Neck: supple Respiratory: No respiratory distress Cardiac/Chest: regular rate, rhythm Abdomen: soft Rectal: other (rt scrotal skin peeling and groin cellulitis less) Skin: warm/dry Neuro/Psych: alert, oriented x 3 ICD10 Worksheet Patient Problems: Problems Problem Status Onset Cellulitis of groin Acute
--- NOTE | 2017-09-27 10:36 | PCMIDPN ---
Assessment/Plan: Assessment: Suprapubic cellulitis with involvement of the right flank as well as the bilateral inguinal areas. This is much improved from initial evaluation 2 days ago. He has switched from vancomycin and meropenem to cefazolin. Agree with this change given no positive blood cultures and improving subjective symptoms. Still think he has a couple days to go with IV antibiotic therapy before likely being able to switch to oral antibiotics for discharge. Plan: 1. Continue IV cefazolin. 2. Follow the appearance of the erythema on the suprapubic area as well as the right flank. 09/27/17 10:34 Subjective: Patient is feeling much better than he did 2 days ago. No fevers or chills. Minor amount of diarrhea about 3 times a day. Not fully liquid. Redness and discomfort in the suprapubic area is decreased. Swelling of the scrotal area is also decreased. Objective: Cefazolin # 1 Vital Signs Temp Pulse Resp BP Pulse Ox 36.9 C 92 18 150/84 H 92 09/27/17 08:14 09/27/17 08:14 09/27/17 08:14 09/27/17 08:14 09/27/17 08:14 Laboratory Results 09/27/17 09:10 09/26/17 04:10 09/26/17 09/27/17 09/28/17 05:59 05:59 05:59 Intake Total 2974 1718 500 Output Total 1450 750 Balance 1524 968 500 C-Reactive Protein 160.7 mg/L (<10.0) H 09/25/17 11:37 - Physical Exam General Appearance: WD/WN, alert, no apparent distress, non-toxic Respiratory: lungs clear, normal breath sounds, No respiratory distress Cardiac/Chest: regular rate, rhythm, No tachycardia Abdomen: non-tender (Less than 2 days ago), soft, distended (Mildly), No mass Male Genitalia: scrotal edema Skin: normal color, warm/dry, No rash Neuro/Psych: alert, normal mood/affect, oriented x 3 ICD10 Worksheet Patient Problems: Problems Problem Status Onset Cellulitis of groin Acute
--- NOTE | 2017-09-27 17:21 | HOSPPROG ---
Hospitalist Progress Note Assessment/Plan: Assessment: 62-year-old male presents with acute lower abdominal wall cellulitis Plan: 1. Cellulitis. Present on admission. Acute, improving w/ broad-spectrum Abx, suspect 2/2 abd wall friction at waistline -cont coverage for likely strep organisms and use IV Ancef, monitor additional 24hrs on IV Abx given ongoing blanchability, and reassess for improvement in AM -day 3 Abx, on Ancef 2. Chronic myelogenous leukemia. Currently stabilized on desatinib, d/w Dr. Rabago, he recommends holding Rx until episode above resolved, then restart as outpt, disease process currently well controlled 3. Coronary artery disease. Chronic, LAD stent -continue patient's home cardiac medications once reconciled 4. Hypertension. Chronic, continue home medication 5. Pancytopenia. 2/2 combination of CML and desatinib Diet. Regular Prophylaxis. Moderate risk patient, Lovenox 40 Code. Full per patient, is MD POAshwin Disposition. Anticipated discharge uncertain this time, requiring ongoing IV abx as the affected area appears clinically unresolved Subjective: energy is increased to 30-40% of baseline Objective: Vital Signs Temp Pulse Resp BP Pulse Ox 36.7 C 80 16 148/87 H 91 L 09/27/17 16:11 09/27/17 16:11 09/27/17 16:11 09/27/17 16:11 09/27/17 16:11 Laboratory Results 09/27/17 09:10 09/26/17 04:10 09/26/17 09/27/17 09/28/17 05:59 05:59 05:59 Intake Total 2974 1718 1000 Output Total 1450 750 Balance 1942 747 4135 PT 13.9 SEC (12.0-15.0) 09/25/17 11:37 INR 1.05 (0.83-1.16) 09/25/17 11:37 - Physical Exam Constitutional: no apparent distress, appears nourished, not in pain, obese Cardiovascular: regular rate and rhythym, no murmur, rub, or gallop, No edema Respiratory: no respiratory distress, no rales or rhonchi, clear to auscultation Gastrointestinal: normoactive bowel sounds, soft, non-tender abdomen, no palpable masses Skin: rash (bilat groin, raised, papular, non-tender, non-confluent but mildly blanchable and slightly indurated suprapubic area) Neurologic: AAOx3 Psychiatric: interacting appropriately, not anxious, not encephalopathic, thought process linear ICD10 Worksheet Patient Problems: Problems Problem Status Onset Cellulitis of groin Acute
[2017-09-27] MEDS: ATORVASTATIN CALCIUM 10 MG TAB PO SCH (21:51)
[2017-09-28 05:09] LABS: PLATELET COUNT 112 10^3/uL (150-400)
[2017-09-28] MEDS: ceFAZolin 2 GM/DEXTROSE 100 ML IV SCH (06:07)
[2017-09-28] MEDS: LEVOTHYROXINE 150 MCG TAB PO SCH (06:07)
[2017-09-28] MEDS: SERTRALINE HCL 50 MG TAB PO SCH (09:30)
[2017-09-28] MEDS: ASPIRIN EC 81 MG TAB PO SCH (09:30)
[2017-09-28] MEDS ORDERED: LOSARTAN POTASSIUM 25 MG TAB PO SCH (09:45)
[2017-09-28] MEDS: ENOXAPARIN 40 MG/0.4 ML SYR SC SCH (10:04)
--- NOTE | 2017-09-28 10:55 | PCMIDPN ---
Assessment/Plan: Assessment/Plan: * Suprapubic cellulitis with right flank involvement and bilateral angle involvement with underlying CML: Marked clinical improvement with antibiotic therapy. Still has residual scrotal edema with some desquamation of skin beginning. No findings of necrosis to suggest Fourniere's gangrene. Think patient will benefit from 2 additional days of IV antibiotics - will give dose of ceftriaxone today prior to discharge and 2 subsequent doses on with follow-up in my office on for repeat assessment. Side effects of ceftriaxone including potential for allergic reactions/rash and potential association with C difficile discussed with patient. Will begin case management planning for antibiotic infusions on . Advised to notify my office for any worsening symptoms. 09/28/17 10:46 Subjective: Patient feels much better. No significant pain in scrotal region. Objective: Vital Signs Temp Pulse Resp BP Pulse Ox 36.6 C 68 16 134/89 H 90 L 09/28/17 07:45 09/28/17 07:45 09/28/17 07:45 09/28/17 10:20 09/28/17 07:45 Laboratory Results 09/28/17 04:44 09/26/17 04:10 09/27/17 09/28/17 09/29/17 05:59 05:59 05:59 Intake Total 1718 2350 Output Total 750 Balance 968 2350 C-Reactive Protein 160.7 mg/L (<10.0) H 09/25/17 11:37 Cefazolin # 2, antibiotics # 4 Blood cultures x2 no growth - Physical Exam General Appearance: alert, no apparent distress EENT: No scleral icterus, No thrush, No conjunctival petechiae Respiratory: lungs clear, No respiratory distress Cardiac/Chest: regular rate, rhythm Abdomen: non-tender, other (Erythema over right flank significantly decreased), No distended Male Genitalia: scrotal edema (Residual edema with some desquamation of skin; no necrosis; inguinal erythema markedly decreased) Skin: No embolic lesions Neuro/Psych: alert - Time Spent With Patient Time Spent with Patient: greater than 35 minutes Time Spent with Patient: Greater than 35 minutes spent on this patients care, greater than 50% of time spent counseling, educating, and coordinating care regarding the above mentioned plan. ICD10 Worksheet Patient Problems: Problems Problem Status Onset Cellulitis of groin Acute
--- NOTE | 2017-09-28 11:17 | ASMTLACE ---
LACE Length of stay for Answers: 3 days current admission Comorbidities - select Answers: Any tumor (including all that apply lymphoma or leukemia) Coronary Artery Disease Other Notes: pancreatitis, cholecyst ect daniela, HTN, hyperlipidemi a, # of Emergency department Answers: 1-2 visits in the last 6 months Score: 9 Date Signed: 09/28/2017 11:16 AM Electronically Signed By:Zahida Luo RN
[2017-09-28 12:32] VITALS: BP 150/96
--- NOTE | 2017-09-28 12:45 | ASMTDCNOTE ---
Case Management Discharge Discharge Order Complete? Answers: Yes Patient to Obtain Answers: Independently Medications Transportation Arranged Answers: Family/Friends Discharge Comments Notes: Patient discharged to home with . He will go to the infusion center tomorrow and the next day for final doses of Ceftriaxone - Dr Gardner has scheduled. Date Signed: 09/28/2017 12:44 PM Electronically Signed By:Zahida Luo RN
--- NOTE | 2017-09-28 13:57 | PDDCSUM ---
Discharge Summary Discharge Summary: DISCHARGE SUMMARY FOLLOW-UP ITEMS: Transition from IV antibiotics to oral antibiotics after infectious disease appointment on 09/30/2017 DATE OF ADMISSION: 09/25/2017 DATE OF DISCHARGE: 09/28/2017 DISCHARGE DIAGNOSES: 1. Abdominal wall cellulitis present on admission 2. Chronic myelogenous leukemia 3. Chronic coronary artery disease 4. Chronic hypertension 5. Pancytopenia secondary to combination of CML and desatinib CONSULTATIONS: Oncology, Infectious Disease, Urology PROCEDURES / IMAGING: None CHIEF COMPLAINT: Fatigue, fever, abdominal wall firmness in discomfort SUBJECTIVE: Patient is feeling well at time discharge, he reports that his energy level is nearing his baseline, he is experiencing some flaking of his skin of his scrotum PHYSICAL EXAM ON DISCHARGE: Systolic blood pressure is 130 to 160, heart rate 70, afebrile overnight, satting on room air, alert awake oriented x3, no apparent distress, pain level 0 /10 LABS ON DISCHARGE: White blood count 3400, hemoglobin 10.5, platelets a [id number] HOSPITAL COURSE BY PROBLEM: The patient presented with acute abdominal wall cellulitis most likely secondary to skin break in the waistline area with subsequent inferior comma distal ecchymoses, rash, scrotal edema. The patient was seen consultation by Urology and Infectious Disease, and our impression was that the patient has scrotal edema was not secondary to local infection but rather dependent edema from his abdominal wall cellulitis. The patient received empiric IV vancomycin and meropenem, and then he was transitioned to IV Ancef as the suspected organism was streptococcal. The patient received 2 subsequent days of IV Ancef , and Infectious Disease decided to transition and IV ceftriaxone with 2 subsequent days of IV infusions at the infusion center. He will then be seen as an outpatient and it will be determine whether to transition him to oral antibiotics at that time. Patient was seen in consultation by Oncology, who determined that the patient's most likely cause of induration, blanchability, tenderness, and papular rash was from cellulitis, and not a reaction of his desatinib. They did recommend holding this medication until the patient's infection has completely resolved, and then resuming. Patient will follow up with his primary oncologist next week. DISCHARGE MEDICATIONS: Please see official discharge medication reconciliation sheet in chart , ceftriaxone 2 g IV for 2 subsequent days then further antibiotics to be determined. Continue all other home medications with the exception of discontinuation of desatinib. DISCHARGE INSTRUCTIONS: Please follow up at the infusion center tomorrow. TIME SPENT: Greater than 30 minutes were spent on direct patient care, as well as discharge planning and preparation.
[2017-09-28] MEDS ORDERED: MELATONIN 3 MG TAB PO SCH (21:00)
== END 2017-09-28 15:54 | disposition home or self-care (01) | DRG 602 ==
LOC: F1N 13:26
PROVIDERS: ADMIT Student in an Organized Health Care Education/Training Program; ATTEND Student in an Organized Health Care Education/Training Program
DX: L03.314 Cellulitis of groin (principal); B95.5 Unspecified streptococcus as the cause of diseases classified elsewhere; C92.Z0 Other myeloid leukemia not having achieved remission; D61.810 Antineoplastic chemotherapy induced pancytopenia; T45.1X5A Adverse effect of antineoplastic and immunosuppressive drugs, initial encounter; I25.10 Atherosclerotic heart disease of native coronary artery without angina pectoris; Z95.5 Presence of coronary angioplasty implant and graft; I10 Essential (primary) hypertension; E78.5 Hyperlipidemia, unspecified; E03.9 Hypothyroidism, unspecified
CPT/HCPCS: 96365; J0690; J0696; J1335; J1650; J2185; J3370

== ENCOUNTER 2018-03-26 10:16 | Inpatient (IN) | payer OTHER, MEDICARE ==
[2018-03-26] MEDS ORDERED: NS 1,000 ML IV ONE (10:56)
[2018-03-26] MEDS ORDERED: ACETAMINOPHEN 500 MG TAB PO ONE (11:12)
[2018-03-26 11:20] LABS: PLATELET COUNT 83 10^3/uL (150-400)
--- NOTE | 2018-03-26 11:21 | EDPHY ---
General Time Seen by Provider: 03/26/18 10:34 Narrative: CLINICAL IMPRESSION: Suprapubic, perineal and buttock cellulitis ASSESSMENT/PLAN: 63-year-old very pleasant male with a history of CML presents to the emergency department with approximately 24 hr of mildly painful, non pruritic rash to the suprapubic region extending into the perineum, perirectal region and bilateral buttocks. Patient had similar rash in September of 2017. Please see HPI for full details. He is slightly tachycardic, low-grade temperature on arrival but otherwise nontoxic and nonseptic appearing. Lactate 1.3, no leukocytosis. He has chronic thrombocytopenia with a baseline platelet count around 100, platelet count today of 83. He also has chronic anemia but appears to be at his baseline H&H today of 12 and 37. Blood cultures obtained. CT pelvis with contrast shows subcutaneous edema in the anterior perineum and buttock region but with no abscess or drainable fluid collection. No clinical signs of necrotizing fasciitis, Ambrosio gangrene, deep space abscess. Patient was started on Ancef according to last hospital admission and ID recommendations. We discussed with hospitalist for admission. Case also discussed with Dr. Beasley. Patient stabilized in the ED prior to admission. DIFFERENTIAL DX: Differential includes but not limited to immunosuppressive reaction, cellulitis , MRSA, necrotizing fasciitis, Ambrosio gangrene ED PROCEDURES: See lab and/or imaging results below ED COURSE: 11:15 a.m.:. Prior admission and ED chart notes reviewed. Test Pilot notes reviewed. Labs ordered. Will plan to admit and consult with ID. 11:30 a.m.:. Initial labs reviewed. No leukocytosis. Mild anemia. Platelet count 83. Lactate 1.2. Will need repeat chemistry panels as blood is hemolyzed. 12:15 a.m.:. Case discussed with hospitalist who agrees to starting and staff. He requested CT scan. At 1:30 p.m.: I received a call from Dr. De Paz stating that the patient has subcutaneous edema in the anterior perineum extending in to the posterior perineum and buttock region with no evidence of abscess. Patient has been admitted to the floor under hospitalist care. CT showing subcutaneous edema in the anterior perineum, buttock but no abscess. CHIEF COMPLAINT: Rash to groin HPI: This is a very pleasant 63-year-old male with a past medical history of CML, followed by [facility], on , with coinciding hx of mild anemia and thrombocytopenia (baseline plt count around 100) who presents to the emergency department with 24 hr of a mildly painful, non pruritic rash to the suprapubic region, inguinal regions, scrotum, perineum, and buttock region. Patient reports having a similar cellulitic rash in September of 2017, was admitted to this hospital, and followed by urology, general surgery, Oncology, and Infectious Disease. He states his rash never fully went away but did improve significantly. He had only 1 follow-up appointment with Dr Gardner from Infectious Disease. He restarted his chemotherapy medication after stopping it during admission. From February 22 through March 15 he was traveling throughout [place], [place] and [place]. He felt well during his travels aside from mild URI symptoms and did stop his chemotherapy medication at that time. URI resolved. He restarted chemo approximately week and half ago. Last night began feeling chilled and feverish but had no coinciding URI symptoms. He began noticing a rash starting on his buttock region. His took pictures and between 10:00 a.m. Yesterday and today the rash has become significantly larger now covering buttock region, sacral region, rectum, perineum, bilateral inguinal regions, scrotum and suprapubic region. Patient states it does not appear as severe as it did in September. He has not had a documented temperature. He generally feels unwell with some nausea but no vomiting. No diarrhea or abnormal bowel habits. No bloody stools. No new chemotherapy regimen. He was followed by Dr. Loera who has since retired and he has not yet established care with a new oncologist. It was his impression at the time of discharge that his diagnosis was a staph infection. He does not recollect of cultures were obtained. He does not carry a history of MRSA. He does not abuse IV drugs. No coinciding UTI symptoms, flank pain, or abdominal pain. He has not applied anything to the rash. PAST MEDICAL HISTORY: CML, pancreatitis, cholecystectomy, hypertension, hyperlipidemia See nurse/triage notes for additional history if applicable Pertinent Past Surgical History: Prior cholecystectomy, right inguinal hernia repair with mesh placement Family History: Noncontributory Social History: Nonsmoker, , here with his , recently traveled overseas REVIEW OF SYSTEMS: All other systems negative Constitutional: Positive for subjective fever, positive for chills, positive for appetite change.] Eyes: No discharge, vision change ENT: No sore throat, congestion, ear pain. Cardiovascular: No chest pain, no palpitations. Respiratory: No cough, no shortness of breath. Gastrointestinal: No abdominal pain, no vomiting, diarrhea. Genitourinary: No hematuria, dysuria, flank pain, pelvic pain Musculoskeletal: No back pain, joint swelling, joint pain, myalgias. Skin: Positive for rash and color change to suprapubic and groin region Neurological: No headache, dizziness, weakness. PHYSICAL EXAM: General Appearance: Alert, oriented, appropriate, cooperative, very pleasant, NAD, well hydrated, non-toxic appearing, tachycardic, febrile at 37.3, no hypoxia. HEENT: TMs are clear bilaterally no perforation or FB, no injection, no evidence of serous or mucopurulent otitis. Oropharynx clear is no erythema or exudates, no tonsillar hypertrophy or asymmetry. Dentition without abnormality. Eyes: PERRLA, no acute vision change, nystagmus, swelling, discharge, pain or photosensitivity. Conjunctiva pink, no pallor or injection Neck: Supple, nontender, no lymphadenopathy, no midline pain, FROM, no meningismus. Respiratory: There are no retractions, lungs are clear to auscultation. Cardiac: Regular rate and rhythm, no murmurs or gallops. Gastrointestinal: Abdomen is soft, nontender, bowel sounds normal, no masses/ hernia, no rigidity, guarding or focal peritoneal findings. Neurological: [ Alert and oriented x 3, CN 2-12 grossly intact Skin: [Erythematous, flat, well-demarcated rash on the suprapubic region extending to the left inguinal greater than right inguinal regions, inferiorly to bilateral scrotum, perineum, and up both inner buttock and perirectal regions with mild extension into the sacrum. It is warm to the touch. I do not appreciate fluctuance or crepitus. No blisters or open wounds. No scrotal swelling. No perineal fluctuance Musculoskeletal: Extremities are symmetrical, full range of motion, no tenderness, deformity, swelling, or erythema. Psychiatric: Patient is oriented X 3, there is no agitation. MEDICAL DECISION MAKING: Patient was seen independently. Secondary supervising physician at time of evaluation was Dr. Beasley . Diagnosis: Suprapubic, perineal, perirectal and buttock cellulitis. New, requires workup Summary: See Assessment and Plan for summary of ED visit Clinical lab tests: ordered / reviewed. Independent visualization of images, tracing, or specimens: Yes. Decision to obtain medical records or history from someone other than the patient: patient's Review / Summarize previous medical records: Reviewed patient's last admission notes, vendor management consultant notes Discussed patient with another provider: Hospitalist, Dr. Beasley, Dr. De Paz Patient Progress: stable. - History Smoking Status: Never smoked - Objective Vital Signs: Initial Vital Signs Temperature (C) 37.3 C 03/26/18 10:24 Heart Rate 103 H 03/26/18 10:24 Respiratory Rate 18 03/26/18 10:24 Blood Pressure 151/84 H 03/26/18 10:24 O2 Sat (%) 94 03/26/18 10:24 O2 Delivery Mode Room Air Allergies/Adverse Reactions: Penicillins Allergy (Unknown, Verified 03/26/18 12:23) Unknown Home Medications: Medication Instructions Recorded Aspirin EC [Aspirin EC 81 mg (*)] 81 mg PO DAILY 09/25/17 Levothyroxine [Synthroid 150 mcg 150 mcg PO DAILY06 09/25/17 (*)] Sertraline HCl [Zoloft 50mg (*)] 50 mg PO DAILY 09/25/17 Simvastatin 20 mg PO HS 09/25/17 Acetaminophen [Tylenol 325mg (*)] 650 mg PO Q4HRS PRN tab 09/28/17 Dasatinib [Sprycel] 100 mg PO DAILY 03/26/18 Losartan Potassium [Cozaar 50 mg 50 mg PO DAILY 03/26/18 (*)] Laboratory Results: Laboratory Results 03/26/18 11:05 03/26/18 11:35 03/26/18 03/26/18 03/26/18 11:35 11:35 11:05 WBC RBC Hgb Hct MCV MCH MCHC RDW Plt Count MPV Neut % (Auto) Lymph % (Auto) [place] % (Auto) Eos % (Auto) Baso % (Auto) Nucleat RBC Rel Count Absolute Neuts (auto) Absolute Lymphs (auto) Absolute Monos (auto) Absolute Eos (auto) Absolute Basos (auto) Absolute Nucleated RBC Immature Gran % Seg Neutrophils % Band Neutrophils % Lymphocytes % Monocytes % Eosinophils % Basophils % Metamyelocytes % Myelocytes % Promyelocytes % Blast Cells % Immature Gran # Absolute Seg Neuts Absolute Band Neuts Absolute Lymphocytes Absolute Monocytes Absolute Eosinophils Absolute Basophils Absolute Metamyelocyte Absolute Myelocytes Absolute Promyelocytes Absolute Plasma Cells Nucleated RBCs Absolute Blast Cells Plasma Cells % Platelet Estimate Oval Macrocytes PT REJ INR REJ APTT REJ VBG Lactic Acid Sodium REJ REJ Potassium Not Reported Not Reported Chloride Not Reported Not Reported Carbon Dioxide Not Reported Not Reported Anion Gap Not Reported Not Reported BUN Not Reported Not Reported Creatinine Not Reported Not Reported Estimated GFR Not Reported Not Reported Glucose Not Reported Not Reported Calcium Not Reported Not Reported Total Bilirubin REJ REJ 03/26/18 03/26/18 03/26/18 11:05 11:05 11:05 WBC 7.09 10^3/uL 10^3/uL (3.80-9.50) RBC 3.78 10^6/uL L 10^6/uL (4.40-6.38) Hgb 12.7 g/dL L g/dL (13.7-17.5) Hct 37.0 % L % (40.0-51.0) MCV 97.9 fL fL (81.5-99.8) MCH 33.6 pg pg (27.9-34.1) MCHC 34.3 g/dL g/dL (32.4-36.7) RDW 14.1 % % (11.5-15.2) Plt Count 83 10^3/uL L 10^3/uL (150-400) MPV 10.4 fL fL (8.7-11.7) Neut % (Auto) Not Reported Lymph % (Auto) Not Reported [place] % (Auto) Not Reported Eos % (Auto) Not Reported Baso % (Auto) Not Reported Nucleat RBC Rel Count Not Reported Absolute Neuts (auto) Not Reported Absolute Lymphs (auto) Not Reported Absolute Monos (auto) Not Reported Absolute Eos (auto) Not Reported Absolute Basos (auto) Not Reported Absolute Nucleated RBC Not Reported Immature Gran % Not Reported Seg Neutrophils % 73.0 % % Band Neutrophils % 20.0 % % Lymphocytes % 4.0 % % Monocytes % 2.0 % % Eosinophils % 0.0 % % Basophils % 1.0 % % Metamyelocytes % 0.0 % % Myelocytes % 0.0 % % Promyelocytes % 0.0 % % Blast Cells % 0.0 % % Immature Gran # Not Reported Absolute Seg Neuts 5.18 10^3/uL 10^3/uL (1.70-6.50) Absolute Band Neuts 1.42 10^3/uL H 10^3/uL (0.00-0.70) Absolute Lymphocytes 0.28 10^3/uL L 10^3/uL (1.00-3.00) Absolute Monocytes 0.14 10^3/uL L 10^3/uL (0.30-0.80) Absolute Eosinophils 0.00 10^3/uL L 10^3/uL (0.03-0.40) Absolute Basophils 0.07 10^3/uL 10^3/uL (0.02-0.10) Absolute Metamyelocyte 0.00 10^3/mL 10^3/mL (0.00-0.00) Absolute Myelocytes 0.00 10^3/mL 10^3/mL (0.00-0.00) Absolute Promyelocytes 0.00 10^3/uL 10^3/uL (0.00-0.00) Absolute Plasma Cells 0.00 10^3/uL 10^3/uL (0.00-0.00) Nucleated RBCs 0 /100 WBC /100 WBC (0-0) Absolute Blast Cells 0.00 10^3/uL 10^3/uL (0.00-0.00) Plasma Cells % 0.0 % % Platelet Estimate DECREASED L (ADEQ) Oval Macrocytes 1+ H PT REJ INR REJ APTT REJ VBG Lactic Acid 1.2 mmol/L mmol/L (0.7-2.1) Sodium Potassium Chloride Carbon Dioxide Anion Gap BUN Creatinine Estimated GFR Glucose Calcium Total Bilirubin Medications Given: Discontinued Medications Acetaminophen (Tylenol) 1,000 mg PO EDNOW ONE Stop: 03/26/18 11:13 Last Admin: 03/26/18 11:17 Dose: 1,000 mg Sodium Chloride (Ns) 1,000 mls @ 0 mls/hr IV EDNOW ONE; Wide Open PRN Reason: Protocol Stop: 03/26/18 10:57 Last Admin: 03/26/18 10:59 Dose: 1,000 mls Cefazolin Sodium/Dextrose (Ancef) 100 mls @ 200 mls/hr IV EDNOW ONE PRN Reason: Protocol Stop: 03/26/18 12:25 Last Admin: 03/26/18 12:06 Dose: 100 mls Departure - Departure Disposition: [facility]
[2018-03-26] MEDS ORDERED: ceFAZolin 2 GM/DEXTROSE 100 ML IV ONE (11:56)
[2018-03-26 12:17] LABS: INR 1.17 (0.83-1.16); PROTIME(PATIENT) 15.1 SEC (12.0-15.0)
[2018-03-26] MEDS ORDERED: IOPAMIDOL (ISOVUE 370) 100 ML BTL IV ONE (12:45)
[2018-03-26] MEDS ORDERED: IBUPROFEN 200 MG TAB PO PRN (13:02)
[2018-03-26] MEDS ORDERED: HYDROCODONE/APAP 5/325 TAB PO PRN (13:02)
[2018-03-26] MEDS ORDERED: diphenhydrAMINE 25 MG CAP PO PRN (13:02)
[2018-03-26] MEDS ORDERED: ONDANSETRON 4 MG/2 ML VIAL IVP PRN (13:02)
[2018-03-26] MEDS ORDERED: LORazepam 0.5 MG TAB PO PRN (13:02)
[2018-03-26] MEDS ORDERED: ACETAMINOPHEN 325 MG TAB PO PRN (13:02)
[2018-03-26] MEDS ORDERED: ONDANSETRON DISINTEGRATING 4 MG TAB PO PRN (13:02)
[2018-03-26] MEDS ORDERED: 1/2 NS 1,000 ML IV SCH (13:15)
--- NOTE | 2018-03-26 17:06 | PDGENHP ---
History and Physical - Chief Complaint fever, rash - History of Present Illness Says had onset of fever/chills about 36 hours ago. Returned about 10 days ago from a trip to [place] and [place], several people on trip including his had flu like illness so he assumed he had the same illness. Noticed increased redness on buttock yesterday which gradually spread during the day and last night was seeing rash on groin area. This AM rash on L leg and lower abdomen. Had mild N, 1x V yesterday. No diarrhea, no V today. No cough/GUIDO/sore throat/SOB /CP. Says feeling better since antibiotic and fluids in the ER. Had a similar distribution of infection/rash in 09/2017, but much more widespread at that time. Records from that admission were reviewed. Denies any other incidents of similar rashes. Denies known trauma/irritation. Denies itching. Denies difficulty urinating, pain in testicles, blood in urine. Stopped chemotherapy medication a few days ago, but has been taking it regularly since previous hospitalization. History Information - Allergies/Home Medication List Allergies/Adverse Reactions: Penicillins Allergy (Unknown, Verified 03/26/18 12:23) Unknown Home Medications: Aspirin EC [Aspirin EC 81 mg (*)] 81 mg PO DAILY 09/25/17 [Last Taken 03/24/18] Levothyroxine [Synthroid 150 mcg (*)] 150 mcg PO DAILY06 09/25/17 [Last Taken ] Sertraline HCl [Zoloft 50mg (*)] 50 mg PO DAILY 09/25/17 [Last Taken 03/24/18] Simvastatin 20 mg PO HS 09/25/17 [Last Taken 03/24/18] Dasatinib [Sprycel] 100 mg PO DAILY 03/26/18 [Last Taken 03/24/18] Losartan Potassium [Cozaar 50 mg (*)] 50 mg PO DAILY 03/26/18 [Last Taken ] I have personally reviewed and updated: medical history, social history, surgical history Past Medical History: has first appt with Dr Villela in a few days, was seeing Dr Loera - Past Medical History coronary artery disease (With stent in the LAD) Additional medical history: CML currently on desatinib for the past 2-3 years. Hypothyroidism. Hypertension. Hyperlipidemia - Surgical History Additional surgical history: Right inguinal hernia repair, cardiac catheterization in March of 2009, cholecystectomy - Family History Additional family history: No family history of nephrolithiasis or prostate cancer - Social History Smoking Status: Never smoked Alcohol Use: Rarely Drug Use: None Additional social history: Independent in his ADLs, lives with locally Review of Systems Review of Systems: ROS: 2-9 pt reviewed & negative except for what was stated in HPI & below Physical Exam Physical Exam: Temp Pulse Resp BP Pulse Ox 99.4 F 85 16 135/77 H 91 L 03/26/18 14:04 03/26/18 14:04 03/26/18 14:04 03/26/18 14:04 03/26/18 14:04 Constitutional: no apparent distress, appears nourished, not in pain Eyes: anicteric sclera, EOMI Ears, Nose, Mouth, Throat: moist mucous membranes, hearing normal Cardiovascular: regular rate and rhythym, no murmur, rub, or gallop, No edema Respiratory: no respiratory distress, no rales or rhonchi, clear to auscultation Gastrointestinal: normoactive bowel sounds, soft, non-tender abdomen, no palpable masses, No rebound, No distension Genitourinary: other (circumcised, no lesions or skin breakdown on scrotum or penis) Skin: warm, other (diffuse erythematous/warm/indurated skin on gluteal cleft, sacral area, L upper thigh/groin >> R and suprapubic area, mild ttp, no blistering or vesicles noted, small area of irritation on L mid gluteal fold ( says was initial irritation area)) Neurologic: sensation intact bilaterally Psychiatric: interacting appropriately, not anxious, not encephalopathic Lymph, Heme, Immunologic: no cervical LAD Lab Data & Imaging Review 03/26/18 11:05 03/26/18 12:00 WBC 7.09 10^3/uL (3.80-9.50) 03/26/18 11:05 RBC 3.78 10^6/uL (4.40-6.38) L 03/26/18 11:05 Hgb 12.7 g/dL (13.7-17.5) L 03/26/18 11:05 Hct 37.0 % (40.0-51.0) L 03/26/18 11:05 MCV 97.9 fL (81.5-99.8) 03/26/18 11:05 MCH 33.6 pg (27.9-34.1) 03/26/18 11:05 MCHC 34.3 g/dL (32.4-36.7) 03/26/18 11:05 RDW 14.1 % (11.5-15.2) 03/26/18 11:05 Plt Count 83 10^3/uL (150-400) L 03/26/18 11:05 MPV 10.4 fL (8.7-11.7) 03/26/18 11:05 Neut % (Auto) Not Reported 03/26/18 11:05 Lymph % (Auto) Not Reported 03/26/18 11:05 [place] % (Auto) Not Reported 03/26/18 11:05 Eos % (Auto) Not Reported 03/26/18 11:05 Baso % (Auto) Not Reported 03/26/18 11:05 Nucleat RBC Rel Count Not Reported 03/26/18 11:05 Absolute Neuts (auto) Not Reported 03/26/18 11:05 Absolute Lymphs (auto) Not Reported 03/26/18 11:05 Absolute Monos (auto) Not Reported 03/26/18 11:05 Absolute Eos (auto) Not Reported 03/26/18 11:05 Absolute Basos (auto) Not Reported 03/26/18 11:05 Absolute Nucleated RBC Not Reported 03/26/18 11:05 Immature Gran % Not Reported 03/26/18 11:05 Seg Neutrophils % 73.0 % 03/26/18 11:05 Band Neutrophils % 20.0 % 03/26/18 11:05 Lymphocytes % 4.0 % 03/26/18 11:05 Monocytes % 2.0 % 03/26/18 11:05 Eosinophils % 0.0 % 03/26/18 11:05 Basophils % 1.0 % 03/26/18 11:05 Metamyelocytes % 0.0 % 03/26/18 11:05 Myelocytes % 0.0 % 03/26/18 11:05 Promyelocytes % 0.0 % 03/26/18 11:05 Blast Cells % 0.0 % 03/26/18 11:05 Immature Gran # Not Reported 03/26/18 11:05 Absolute Seg Neuts 5.18 10^3/uL (1.70-6.50) 03/26/18 11:05 Absolute Band Neuts 1.42 10^3/uL (0.00-0.70) H 03/26/18 11:05 Absolute Lymphocytes 0.28 10^3/uL (1.00-3.00) L 03/26/18 11:05 Absolute Monocytes 0.14 10^3/uL (0.30-0.80) L 03/26/18 11:05 Absolute Eosinophils 0.00 10^3/uL (0.03-0.40) L 03/26/18 11:05 Absolute Basophils 0.07 10^3/uL (0.02-0.10) 03/26/18 11:05 Absolute Metamyelocyte 0.00 10^3/mL (0.00-0.00) 03/26/18 11:05 Absolute Myelocytes 0.00 10^3/mL (0.00-0.00) 03/26/18 11:05 Absolute Promyelocytes 0.00 10^3/uL (0.00-0.00) 03/26/18 11:05 Absolute Plasma Cells 0.00 10^3/uL (0.00-0.00) 03/26/18 11:05 Nucleated RBCs 0 /100 WBC (0-0) 03/26/18 11:05 Absolute Blast Cells 0.00 10^3/uL (0.00-0.00) 03/26/18 11:05 Plasma Cells % 0.0 % 03/26/18 11:05 Platelet Estimate DECREASED (ADEQ) L 03/26/18 11:05 Oval Macrocytes 1+ H 03/26/18 11:05 PT 15.1 SEC (12.0-15.0) H 03/26/18 12:00 INR 1.17 (0.83-1.16) H 03/26/18 12:00 APTT 30.4 SEC (23.0-38.0) 03/26/18 12:00 VBG Lactic Acid 1.2 mmol/L (0.7-2.1) 03/26/18 11:05 Sodium 132 mEq/L (135-145) L 03/26/18 12:00 Potassium 4.0 mEq/L (3.5-5.2) 03/26/18 12:00 Chloride 104 mEq/L (97-110) 03/26/18 12:00 Carbon Dioxide 22 mEq/l (22-31) 03/26/18 12:00 Anion Gap 6 mEq/L (6-14) 03/26/18 12:00 BUN 17 mg/dL (7-23) 03/26/18 12:00 Creatinine 0.9 mg/dL (0.7-1.3) 03/26/18 12:00 Estimated GFR > 60 03/26/18 12:00 Glucose 112 mg/dL (70-100) H 03/26/18 12:00 Calcium 8.5 mg/dL (8.5-10.4) 03/26/18 12:00 Total Bilirubin REJ 03/26/18 11:35 Urine Color PALE YELLOW 03/26/18 16:20 Urine Appearance CLEAR 03/26/18 16:20 Urine pH 6.0 (5.0-7.5) 03/26/18 16:20 Ur Specific [place] 1.011 (1.002-1.030) 03/26/18 16:20 Urine Protein NEGATIVE (NEGATIVE) 03/26/18 16:20 Urine Ketones NEGATIVE (NEGATIVE) 03/26/18 16:20 Urine Blood 1+ (NEGATIVE) H 03/26/18 16:20 Urine Nitrate NEGATIVE (NEGATIVE) 03/26/18 16:20 Urine Bilirubin NEGATIVE (NEGATIVE) 03/26/18 16:20 Urine Urobilinogen 2.0 EU (0.2-1.0) H 03/26/18 16:20 Ur Leukocyte Esterase NEGATIVE (NEGATIVE) 03/26/18 16:20 Urine RBC NONE SEEN /hpf (0-3) 03/26/18 16:20 Urine WBC 1-3 /hpf (0-3) 03/26/18 16:20 Ur Epithelial Cells NONE SEEN /lpf (NONE-1+) 03/26/18 16:20 Urine Mucus TRACE /lpf (NONE-1+) 03/26/18 16:20 Urine Sperm PRESENT /hpf (NONE SEEN) 03/26/18 16:20 Urine Glucose NEGATIVE (NEGATIVE) 03/26/18 16:20 Visualized and Interpreted imaging results: Yes Assessment & Plan Plan: 1. Acute Cellulitis -IV ancef as responded well to this on previous admission -may have impaired immune system activity with underlying CML and may require at least 48 hr of IV antibiotics to accomplish stabilization -blood cultures pending -small area of irritation on L buttock as initial entry 2. Chronic myelogenous leukemia -Currently on desatinib 3. Coronary artery disease. Chronic, s/p mid LAD lesion requiring stent placement for unstable angina -continue home cardiac medications 4. Hypertension. Chronic -continue home medication 5. Chronic anemia and thrombocytopenia from CML -stable 6. Hyponatremia, mild -recheck in AM PCP Dr Bobo, Dr Villela at [facility] Full code per patient, is MD CABRAL VTE prophy: mechanical Disposition: Anticipated discharge uncertain this time, will reassess in AM for response to ABX, Blood cultures results
[2018-03-26] MEDS ORDERED: ZOLPIDEM TARTRATE 5 MG TAB PO PRN (19:02)
[2018-03-26] MEDS: ceFAZolin 2 GM/DEXTROSE 100 ML IV SCH (19:47)
[2018-03-26] MEDS ORDERED: ACETAMINOPHEN 325 MG TAB PO ONE (21:00)
[2018-03-26] MEDS: TEMAZEPAM 15 MG CAP PO PRN (21:43)
[2018-03-27] MEDS: ceFAZolin 2 GM/DEXTROSE 100 ML IV SCH ×3 (03:56→20:29)
[2018-03-27] MEDS: LEVOTHYROXINE 150 MCG TAB PO SCH (07:29)
[2018-03-27] MEDS: LOSARTAN POTASSIUM 50 MG TAB PO SCH (09:08)
[2018-03-27] MEDS: ASPIRIN EC 81 MG TAB PO SCH (09:08)
[2018-03-27] MEDS: SERTRALINE HCL 50 MG TAB PO SCH (09:08)
[2018-03-27] MEDS: Dasatinib [Sprycel] 100 MG PO SCH (09:09)
--- NOTE | 2018-03-27 09:10 | HOSPPROG ---
Hospitalist Progress Note Assessment/Plan: 63 yo M w cml in remission here w recurrent abd wall cellulitis cellulitis: ct w no rectal or scrotal involvement although distribution concerning recent trip to [place], denies constant sweatiness- appearance potentially fungal 1. id to see 2. continue cefazolin 3. send immunoglobulins hyponatremia: ild, follow cml: continue abratinib proph: lmwh dispo: inpt Subjective: case d/w dr goodman. ct images reviewed/interp by me Objective: Vital Signs Temp Pulse Resp BP Pulse Ox 37.4 C 95 16 119/78 90 L 03/27/18 08:19 03/27/18 08:19 03/27/18 08:19 03/27/18 08:19 03/27/18 08:19 Laboratory Results 03/27/18 04:12 03/27/18 04:12 03/26/18 03/27/18 03/28/18 05:59 05:59 05:59 Intake Total 2450 Balance 2450 PT 15.1 SEC (12.0-15.0) H 03/26/18 12:00 INR 1.17 (0.83-1.16) H 03/26/18 12:00 - Physical Exam Constitutional: no apparent distress, appears nourished Eyes: PERRL, anicteric sclera Ears, Nose, Mouth, Throat: moist mucous membranes, hearing normal Cardiovascular: regular rate and rhythym, no murmur, rub, or gallop Respiratory: no respiratory distress, no rales or rhonchi Gastrointestinal: normoactive bowel sounds, soft, non-tender abdomen Genitourinary: no bladder fullness, No figueroa in urethra Skin: other (beefy red cellulitis around buttocks and inguinal area without penile involvement) ICD10 Worksheet Patient Problems: Problems Problem Status Onset Cellulitis of groin Acute
--- NOTE | 2018-03-27 16:01 | ASMTCMCOM ---
CM Note CM Note Notes: 03/27/2018 Case Management Note Pt admitted with history of CNL followed by [facility] in remission with recurrent abd wall cellulitis. ID to follow. There are no therapy evals ordered at this time. Previous discharge plan from September 2017 [facility] for completion of Ceftriaxone therapy. Case Management d/c needs are unclear at this time. Anticipating independent with follow up as directed. Case Management d/c poc: to be determined. Case Management to follow. Date Signed: 03/27/2018 04:01 PM Electronically Signed By:Virgie Palmer RN
--- NOTE | 2018-03-27 18:05 | GCON ---
INFECTIOUS DISEASE CONSULTATION DATE OF CONSULTATION: 03/27/2018 REFERRING PHYSICIAN: Rustam Thornton MD REASON FOR CONSULTATION: Cellulitis. 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 The patient presented to the emergency room on the and was noted to be febrile with fairly extensive cellulitis including the gluteal f old, suprapubic and bilateral inguinal regions. Blood cultures were obtained and a CT scan was perfo rmed of the pelvis, which showed cellulitis of the subcutaneous fat, both anterior and posterior. No other concerning findings. CT scan was performed with contrast. The patient was admitted to the [facility] and started on IV cefazolin 2 g IV q.8. The patient reports feeling significantly better toda y with less myalgia and some recession of the erythema, particularly in the suprapubic region. He de nies a specific trauma to this area. [place] about [place] ski weekend when the onset of this illness began. Earlier this month, the patient returned from a 3-week trip on March 13 to [place], [place], and [place]. The patient denies any specific exposures during that . PAST MEDICAL HISTORY: Killian esophagitis, CML, coronary artery disease, depression, hyperlipidemia, gastroesophageal reflux disease, hypertension, hypothyroidism. PAST SURGICAL HISTORY: Cholecystectomy, LAD stent, and inguinal hernia repair. ALLERGIES: The patient states that he had a reaction to penicillin in childhood, but it is unknown, likely not a true allergy. MEDICATIONS: Cefazolin 2 g IV q. 8, Lovenox 40 subcu daily, Synthroid, losartan 50 mg daily, Zofran 50 mg daily, Ambien 10 mg p.o. q.h.s., and Restoril 15 mg p.o. q.h.s. SOCIAL HISTORY: Patient never smoked, 3 children. Occasional alcohol. He is . He is retire d from the [employer]. Travel as per HPI. FAMILY HISTORY: Positive for coronary artery disease in his mother. REVIEW OF SYSTEMS: A complete 10-point review of systems was performed and is negative except as men tioned in the HPI. PHYSICAL EXAM: VITAL SIGNS: T-max 38.6, T current 37, blood pressure 118/79, heart rate 89, respira tory rate 18. GENERAL: This is a remarkably well-appearing male, sitting up in bed, in no acute dis tress. HEENT: Pupils are reactive bilaterally. No conjunctival hemorrhage. Good dentition. No or al ulcerations or exudate. NECK: Supple. CARDIOVASCULAR: Regular rate. No murmurs. CHEST: Ayesha r to auscultation bilaterally. ABDOMEN: Soft, nontender. SKIN: Remarkable for raised erythema wit h distinct border extending from left to right inguinal region and suprapubic area relatively sparing his scrotum and penis but extending to the perineum up into his gluteal fold with particular indurat ion and purplish discoloration of the right mid gluteal fold. NEUROLOGIC: He was alert and oriented x4, ambulating about the room in no acute distress. EXTREMITIES: No clubbing, cyanosis, or edema. LABORATORY: White count 7 on admission, hematocrit 37, platelets of 83, 73% neutrophils, 20% bands. Today, white count was 4.7. No diff was obtained. Platelets persistently low at 69 and hematocrit 34, creatinine 0.9. Urinalysis was unremarkable. IMAGING: As per HPI. ASSESSMENT AND PLAN: This is a 63-year-old male on a tyrosine kinase inhibitor with recurrent cellul itis in the same region, a similar region as 6 months ago. Cellulitis is fairly extensive in the [place] ateral inguinal suprapubic and gluteal fold and lower back area. It is very raised in nature with a distinct border which clinically I associate with streptococcal disease. Cannot completely rule out methicillin-sensitive Staphylococcus aureus. The patient did clinically respond overnight with sympt omatic improvement. Notable associated findings include bandemia and thrombocytopenia. 1. Agree with high-dose cefazolin as patient is over 100 kg. 2. Will monitor blood cultures. 3. Agree with immunoglobulins. Would also add on LFTs. 4. Continue to monitor white count. Would add on diff for tomorrow. 5. With rapid clinical improvement, the patient is hopeful to transition to outpatient IV antibiotic therapy as previously and will continue to assess the timing of this going forward. Thank you for this consultation. Will continue to see the patient on a daily basis. /[id number]/MODL
[2018-03-27] MEDS: ATORVASTATIN CALCIUM 10 MG TAB PO SCH (21:08)
[2018-03-27] MEDS: TEMAZEPAM 15 MG CAP PO PRN (21:08)
[2018-03-28] MEDS: ceFAZolin 2 GM/DEXTROSE 100 ML IV SCH ×3 (04:27→20:32)
[2018-03-28] MEDS: LEVOTHYROXINE 150 MCG TAB PO SCH (05:10)
[2018-03-28 06:03] LABS: PLATELET COUNT 78 10^3/uL (150-400)
--- NOTE | 2018-03-28 08:10 | PDMN ---
Medical Necessity Medical necessity: Pt meets IP criteria as of 03/27/18 per MD and MCG M-70 ( Cellulitis); los > 2 mn for ongoing tx and management of perineal cellulitis in an immunosuppressed pt.
[2018-03-28] MEDS: SERTRALINE HCL 50 MG TAB PO SCH (08:33)
[2018-03-28] MEDS: LOSARTAN POTASSIUM 50 MG TAB PO SCH (08:33)
[2018-03-28] MEDS: ASPIRIN EC 81 MG TAB PO SCH (08:33)
[2018-03-28] MEDS: ENOXAPARIN 40 MG/0.4 ML SYR SC SCH (08:34)
[2018-03-28] MEDS: Dasatinib [Sprycel] 100 MG PO SCH (08:37)
--- NOTE | 2018-03-28 10:25 | PCMIDPN ---
Assessment/Plan: Assessment: Cellulitis in the perineal and small back region. Also present in bilateral inguinal creases. Blood cultures remain negative. Patient is on empiric Ancef and continues to feel very well. No fevers over the last 18 hr. Plan to continue the Ancef and observe over another 24 hr. After that would be the option of continuing IV Ancef by continuous dose or switching over to oral cephalosporin. This decision will depend on patient appearance. Plan: 1. Continue IV cefazolin. 2. Follow up on pending laboratories such as immunoglobulin levels. 3. Follow up on blood cultures. 03/28/18 10:22 Subjective: Patient is resting in his hospital room. His is present as well. He denies any subjective fevers or chills. He states he is feeling much better today. His rash is still significant-dusky red in the inguinal area as well as the perineal region and small of the back. Objective: Cefazolin # 2 Vital Signs Temp Pulse Resp BP Pulse Ox 36.5 C 75 16 137/77 H 92 03/28/18 08:11 03/28/18 08:11 03/28/18 08:11 03/28/18 08:11 03/28/18 08:11 Laboratory Results 03/28/18 05:22 03/28/18 05:22 03/27/18 03/28/18 03/29/18 05:59 05:59 05:59 Intake Total 1650 Balance 1650 - Physical Exam General Appearance: WD/WN, alert, no apparent distress, non-toxic Respiratory: lungs clear, normal breath sounds, No respiratory distress Cardiac/Chest: regular rate, rhythm, No tachycardia Extremities: non-tender, erythema (Inguinal areas), No normal inspection Skin: normal color, warm/dry, rash Neuro/Psych: alert, normal mood/affect, oriented x 3 ICD10 Worksheet Patient Problems: Problems Problem Status Onset Cellulitis of groin Acute
--- NOTE | 2018-03-28 13:16 | HOSPPROG ---
Hospitalist Progress Note Assessment/Plan: 63 yo M w cml in remission here w recurrent abd wall cellulitis cellulitis: ct w no rectal or scrotal involvement although distribution concerning recent trip to [place], denies constant sweatiness- appearance potentially fungal 1. id has seen 2. continue cefazolin 3. send immunoglobulins hyponatremia: mild, follow cml: continue abratinib proph: lmwh dispo: inpt Subjective: case d/w dr child. improved. afebrile Objective: Vital Signs Temp Pulse Resp BP Pulse Ox 36.6 C 72 16 122/75 H 94 03/28/18 11:07 03/28/18 11:07 03/28/18 11:07 03/28/18 11:07 03/28/18 11:07 Laboratory Results 03/28/18 05:22 03/28/18 05:22 03/27/18 03/28/18 03/29/18 05:59 05:59 05:59 Intake Total 1650 Balance 1650 PT 15.1 SEC (12.0-15.0) H 03/26/18 12:00 INR 1.17 (0.83-1.16) H 03/26/18 12:00 - Physical Exam Constitutional: no apparent distress, appears nourished Eyes: PERRL, anicteric sclera Ears, Nose, Mouth, Throat: moist mucous membranes, hearing normal Cardiovascular: regular rate and rhythym, no murmur, rub, or gallop Respiratory: no respiratory distress, no rales or rhonchi Gastrointestinal: normoactive bowel sounds, soft, non-tender abdomen Genitourinary: No figueroa in urethra Skin: other (rash w decreased erythema and distribution) Musculoskeletal: full muscle strength ICD10 Worksheet Patient Problems: Problems Problem Status Onset Cellulitis of groin Acute
[2018-03-28] MEDS: ATORVASTATIN CALCIUM 10 MG TAB PO SCH (20:32)
[2018-03-28] MEDS: TEMAZEPAM 15 MG CAP PO PRN (20:32)
[2018-03-29] MEDS: ceFAZolin 2 GM/DEXTROSE 100 ML IV SCH ×2 (04:50→11:55)
[2018-03-29] MEDS: LEVOTHYROXINE 150 MCG TAB PO SCH (04:50)
--- NOTE | 2018-03-29 08:53 | PCMIDPN ---
Assessment/Plan: 1. Abdominal wall/gluteal fold cellulitis: Antecedent flu-like symptoms, and sharp erythematous border suggest streptococcal etiology. Patient feels improved enough to go home. Would like him to get another dose at [facility] at noon prior to discharge if this is possible. Subsequently, would recommend Keflex 500 mg p.o. 4 times daily for the next 5 days, to complete 8 days of therapy. Talked at length with him about changing the type of underwear he uses, using gold Islas powder moving forward to wick the area dry, and drying the area with a hair continuous linter drier operator after he gets out of the shower. If he gets this again, he may need antibiotic prophylaxis. Patient has an appointment to see Dr. Fredo Troncoso at the [facility] WednesdayApril 04 at 1:30pm and he was informed of this. Immunoglobulins are still pending; Dr. Troncoso will review this when he sees him. Over 25 min spent with this patient today. 03/29/18 08:55 Subjective: Feels much better. Wants to go home. No diarrhea on the antibiotics. Talked at length with him today about his underwear, and using gold Islas powder. Objective: Cefazolin 2 g IV q.8 hours day 3 No fevers Vital Signs Temp Pulse Resp BP Pulse Ox 36.7 C 72 16 133/63 H 92 03/29/18 04:00 03/29/18 04:00 03/29/18 04:00 03/29/18 04:00 03/29/18 04:00 Laboratory Results 03/28/18 05:22 03/28/18 05:22 03/28/18 03/29/18 03/30/18 05:59 05:59 05:59 Intake Total 1650 2900 Balance 1650 2900 - Physical Exam General Appearance: no apparent distress, obese EENT: pharynx normal, No thrush Abdomen: other (Dusky erythema with hemorrhagic component along waistline that wraps around his back, much improved with receding erythema inside waistline margins. No vesicles or bullae.) ICD10 Worksheet Patient Problems: Problems Problem Status Onset Cellulitis of groin Acute
[2018-03-29] MEDS: LOSARTAN POTASSIUM 50 MG TAB PO SCH (08:57)
[2018-03-29] MEDS: SERTRALINE HCL 50 MG TAB PO SCH (08:58)
[2018-03-29] MEDS: ASPIRIN EC 81 MG TAB PO SCH (08:58)
[2018-03-29] MEDS: Dasatinib [Sprycel] 100 MG PO SCH (08:59)
[2018-03-29] MEDS: ENOXAPARIN 40 MG/0.4 ML SYR SC SCH (08:59)
--- NOTE | 2018-03-29 10:21 | HOSPPROG ---
Hospitalist Progress Note Assessment/Plan: 63 yo M w cml in remission here w recurrent abd wall cellulitis cellulitis: ct w no rectal or scrotal involvement although distribution concerning recent trip to [place], denies constant sweatiness- appearance potentially fungal 1. id has seen 2. continue cefazolin through noon 3. immunoglobulins pending 4. complete 8 day course of abx hyponatremia: mild, follow cml: continue abratinib proph: lmwh dispo: inpt Subjective: rash continues to improve. anxious for dc Objective: Vital Signs Temp Pulse Resp BP Pulse Ox 36.4 C 83 18 145/84 H 95 03/29/18 09:02 03/29/18 09:01 03/29/18 09:01 03/29/18 09:01 03/29/18 09:01 Laboratory Results 03/28/18 05:22 03/28/18 05:22 03/28/18 03/29/18 03/30/18 05:59 05:59 05:59 Intake Total 1650 2900 Balance 1650 2900 PT 15.1 SEC (12.0-15.0) H 03/26/18 12:00 INR 1.17 (0.83-1.16) H 03/26/18 12:00 - Physical Exam Constitutional: no apparent distress, appears nourished Eyes: PERRL, anicteric sclera Ears, Nose, Mouth, Throat: moist mucous membranes, hearing normal Cardiovascular: regular rate and rhythym, no murmur, rub, or gallop Respiratory: no respiratory distress, no rales or rhonchi Gastrointestinal: normoactive bowel sounds, soft, non-tender abdomen Genitourinary: no bladder fullness, No figueroa in urethra Skin: warm, normal color, other (cellulitis much improved) Musculoskeletal: full muscle strength, no muscle tenderness Neurologic: AAOx3, sensation intact bilaterally ICD10 Worksheet Patient Problems: Problems Problem Status Onset Cellulitis of groin Acute
--- NOTE | 2018-03-29 11:11 | GDS ---
DISCHARGE DIAGNOSES: 1. Recurrent groin cellulitis, suspected strep. 2. Hypertension. 3. Hyperlipidemia. 4. Chronic myelogenous leukemia, on dasatinib. HOSPITAL COURSE: Please see Admission History and Physical by Dr. Natalia Childers. The patient present ed with recurrent cellulitis and fevers. He had a slightly delayed presentation given the concern th at it was a possible viral infection because he had recently travelled and other members of his republican had that. He then developed a rash in his groin and presented. It was somewhat atypical in nature. There was no mucous membrane involvement, no scrotal involvement, so Ambrosio's or perirectal absce ss were not clinically apparent and pelvis CT showed cellulitis alone. The patient had negative blood cultures. He defervesced after the first hospital day. He received a course of cefazolin and he is discharged on Keflex with outpatient followup for Infectious Disease. He was given some local care advice to preclude recurrent episodes. He has outpatient followup for infectious Disease. /[id number]/MODL
--- NOTE | 2018-03-29 11:41 | ASMTDCNOTE ---
Case Management Discharge Discharge Order Complete? Answers: Yes Patient to Obtain Answers: via Family Medications Transportation Arranged Answers: Family/Friends Discharge Comments Notes: Pt being discharged independently. No CM needs identified. Lives with supportive family. Being discharged on PO antibiotics. family to transport. Date Signed: 03/29/2018 11:41 AM Electronically Signed By:ANDREW May
--- NOTE | 2018-03-29 11:43 | ASMTLACE ---
LACE Length of stay for Answers: 1 day current admission Acuity / Level of Answers: Yes Care: Did the patient have an inpatient admission? Comorbidities - select Answers: Any tumor (including all that apply lymphoma or leukemia) # of Emergency department Answers: 1-2 visits in the last 6 months Score: 7 Date Signed: 03/29/2018 11:43 AM Electronically Signed By:ANDREW May
[2018-03-29 11:44] VITALS: BP 141/83
--- NOTE | 2018-03-29 15:13 | ASDISCHSUM ---
Discharge Information Plan Status:Home with No Needs Medically Cleared to Leave: Discharge Date:03/29/2018 01:12 PM CM D/C Disposition:Home, Routine, Self-Care ADT D/C Disposition:Home, Routine, Self-Care Projected Discharge Date:03/29/2018 12:00 AM Transportation at D/C:Family Discharge Delay Reason: Follow-Up Date:03/29/2018 12:00 AM Discharge Slot: Final Diagnosis: Placement Information Patient Contact Information Contact Name:ZAYNAB Relationship: Address:[address] City:[place] Alternate Phone: [facility]/Zip Code:[place] [address] Email: Financial Information Financial Class:Medicare Primary Plan Desc:MEDICARE INPATIENT Primary Plan Number:[id number] Secondary Plan Desc:[employer]/MDR SUPPLEMENT Secondary Plan Number:[id number] Assessment Information LACE LACE Length of stay for Answers: 1 day current admission Acuity / Level of Answers: Yes Care: Did the patient have an inpatient admission? Comorbidities - select Answers: Any tumor (including all that apply lymphoma or leukemia) # of Emergency department Answers: 1-2 visits in the last 6 months Score: 7 Date Signed: 03/29/2018 11:43 AM Electronically Signed By:ANDREW May [facility] CM Progress Note CM Note CM Note Notes: 03/27/2018 Case Management Note Pt admitted with history of CNL followed by [facility] in remission with recurrent abd wall cellulitis. ID to follow. There are no therapy evals ordered at this time. Previous discharge plan from September 2017 [facility] for completion of Ceftriaxone therapy. Case Management d/c needs are unclear at this time. Anticipating independent with follow up as directed. Case Management d/c poc: to be determined. Case Management to follow. Date Signed: 03/27/2018 04:01 PM Electronically Signed By:Virgie Palmer RN Case Management Discharge Plan Note Case Management Discharge Discharge Order Complete? Answers: Yes Patient to Obtain Answers: via Family Medications Transportation Arranged Answers: Family/Friends Discharge Comments Notes: Pt being discharged independently. No CM needs identified. Lives with supportive family. Being discharged on PO antibiotics. family to transport. Date Signed: 03/29/2018 11:41 AM Electronically Signed By:ANDREW May Intervention Information
== END 2018-03-29 13:12 | disposition home or self-care (01) | DRG 603 ==
LOC: F1N 14:03 → OBSVTOIN 03-27 16:34
PROVIDERS: ADMIT Student in an Organized Health Care Education/Training Program; ATTEND Student in an Organized Health Care Education/Training Program
DX: L03.314 Cellulitis of groin (principal); C92.10 Chronic myeloid leukemia, BCR/ABL-positive, not having achieved remission; E86.9 Volume depletion, unspecified; B95.5 Unspecified streptococcus as the cause of diseases classified elsewhere; I10 Essential (primary) hypertension; E78.5 Hyperlipidemia, unspecified; D64.9 Anemia, unspecified; D69.6 Thrombocytopenia, unspecified
CPT/HCPCS: 82784-90; 86694-90; 86787-90; 96365; G0378; J0690; J1650; Q9967